=== PATIENT | male | born 1965 | race Hispanic/Latino ===

== ENCOUNTER 2021-05-01 20:22 | Emergency (ER) | payer BC, SELFPAY ==
--- NOTE | 2021-05-01 21:29 | RAD REPORT ---
EXAM DESCRIPTION: RAD - Chest Single View - 05/01/2021 9:18 pm CLINICAL HISTORY: COUGH Chest pain. COMPARISON: <Comparisons> FINDINGS: Portable technique limits examination quality. The lungs are grossly clear. The heart is normal in size. No displaced fractures. IMPRESSION: No acute intrathoracic process suspected.
--- NOTE | 2021-05-01 22:07 | ER ---
Nurse's Notes [facility] Name: Marko Mcneal Age: 56 yrs Sex: Male : 1965 Arrival Date: 05/01/2021 Time: 20:37 Bed 13 Private MD: Diagnosis: Coronavirus infection, unspecified Presentation: 05/01 20:35 Chief complaint: Patient states: I had chills last Monday then started to have rr5 cough, pain on the side of my right abdomen and shortness of breath and now it gets worse. 20:35 Coronavirus screen: Client denies travel out of the [place] in the last 14 days. chills, rr5 cough unrelated to allergies, Client presents with at least one sign or symptom that may indicate coronavirus-19. Standard/surgical mask placed on the client. Provider contacted for isolation considerations. Ebola Screen: Patient negative for fever greater than or equal to 101.5 degrees Fahrenheit, and additional compatible Ebola Virus Disease symptoms Patient denies exposure to infectious person. Patient denies travel to an Ebola-affected area in the 21 days before illness onset. Initial Sepsis Screen: Does the patient meet any 2 criteria? No. Patient's initial sepsis screen is negative. Does the patient have a suspected source of infection? No. Patient's initial sepsis screen is negative. Risk Assessment: Do you want to hurt yourself or someone else? Patient reports no desire to harm self or others. Onset of symptoms was April 28, 2021. 20:35 Method Of Arrival: Ambulatory rr5 20:35 Acuity: PERRI 3 rr5 Historical: - Allergies: 20:41 No Known Allergies; rr5 - Home Meds: 20:41 None [Active]; rr5 - PMHx: 20:41 None; rr5 - PSHx: 20:41 None; rr5 - Immunization history:: Adult Immunizations up to date. - Social history:: Smoking status: Patient/guardian denies using tobacco, the patient reports quitting approximately 25 years ago, Patient/guardian denies using alcohol, street drugs. Screenin:38 Abuse screen: Denies threats or abuse. Nutritional screening: No deficits noted. vg1 Tuberculosis screening: No symptoms or risk factors identified. Fall Risk No fall in past 12 months (0 pts). No secondary diagnosis (0 pts). No IV (0 pts). Ambulatory Aid- None/Bed Rest/Nurse Assist (0 pts). Gait- Normal/Bed Rest/Wheelchair (0 pts) Mental Status- Oriented to own ability (0 pts). Total Tanner Fall Scale indicates No Risk (0-24 pts). Assessment: 21:20 General: Appears in no apparent distress. comfortable, Behavior is calm, cooperative. vg1 Pain: Complains of pain in posterior aspect of left lateral abdomen, posterior aspect of right lateral abdomen, right upper quadrant and left upper quadrant Pain currently is 8 out of 10 on a pain scale. Pain began 2-3 days ago. Neuro: Level of Consciousness is awake, alert, obeys commands, Oriented to person, place, time, situation. Cardiovascular: Patient's skin is warm and dry. Respiratory: Reports shortness of breath cough that is dry, pain with respiration Airway is patent Respiratory effort is even, unlabored, Breath sounds are clear bilaterally. GI: Reports nausea, Patient currently denies diarrhea, vomiting. : No signs and/or symptoms were reported regarding the genitourinary system. EENT: Throat is reddened Reports sore throat. Derm: Skin is intact, is healthy with good turgor. Musculoskeletal: Circulation, motion, and sensation intact. 22:05 Reassessment: Patient appears in no apparent distress at this time. No changes from vg1 previously documented assessment. Patient and/or family updated on plan of care and expected duration. Pain level reassessed. Patient is alert, oriented x 3, equal unlabored respirations, skin warm/dry/pink. Vital Signs: 20:35 BP 145 / 85; Pulse 100; Resp 19; Temp 99; Pulse Ox 100% ; Weight 88.45 kg; Height 5 ft. rr5 4 in. (162.56 cm); Pain 8/10; 21:20 BP 125 / 82; Pulse 90; Resp 18; Pulse Ox 98% on R/A; vg1 22:04 BP 121 / 84; Pulse 97; Resp 16; Pulse Ox 100% on R/A; vg1 20:35 Body Mass Index 33.47 (88.45 kg, 162.56 cm) rr5 ED Course: 20:37 Patient arrived in ED. cf2 20:41 Triage completed. rr5 20:42 Arm band placed on left wrist. EKG completed in triage. Results shown to MD. rr5 20:44 COVID swab sent to lab. rr5 21:01 Wiley Isaac PA is PHCP. [facility] 21:01 Josiah Cespedes MD is Attending Physician. m 21:18 Chest Single View XRAY In Process Unspecified. EDMS 21:35 Whit Weinstein, RN is Primary Nurse. vg1 21:39 Patient has correct armband on for positive identification. Call light in reach. pt vg1 sitting in bedside chair. 22:21 No provider procedures requiring assistance completed. Patient did not have IV access lp1 during this emergency room visit. Administered Medications: 22:05 Drug: Decadron (dexamethasone) 10 mg Route: IM; Site: left deltoid; vg1 22:20 Follow up: Response: No adverse reaction lp1 Outcome: 22:06 Discharge ordered by MD. [facility] 22:21 Discharged to home ambulatory. lp1 22:21 Condition: good 22:21 Discharge instructions given to patient, Instructed on discharge instructions, follow up and referral plans. medication usage, Demonstrated understanding of instructions, follow-up care, medications, Prescriptions given X 2. 22:21 Patient left the ED. lp1 Signatures: Dispatcher [employer] EDMS Wiley Isaac PA PA Mimi Ahumada RN RN lp1 Korey Trinidad RN RN rr5 Jovany Peterson cf2 Whit Weinstein, RN RN vg1 Corrections: (The following items were deleted from the chart) 21:38 21:35 General: Appears in no apparent distress. comfortable, Behavior is calm, vg1 cooperative, vg1 21:38 21:35 Pain: Complains of pain in posterior aspect of left lateral abdomen, posterior vg1 aspect of right lateral abdomen, right upper quadrant and left upper quadrant Pain currently is 8 out of 10 on a pain scale. Pain began 2-3 days ago. vg1 21:38 21:35 Neuro: Level of Consciousness is awake, alert, obeys commands, Oriented to vg1 person, place, time, situation, vg1 21:38 21:35 Cardiovascular: Patient's skin is warm and dry. vg1 vg1 21:38 21:35 Respiratory: Reports shortness of breath cough that is dry, pain with respiration vg1 Airway is patent Respiratory effort is even, unlabored, Breath sounds are clear bilaterally. vg1 :38 21:35 GI: Reports nausea, Patient currently denies diarrhea, vomiting, vg1 vg1 :38 21:35 : No signs and/or symptoms were reported regarding the genitourinary system. vg1vg1 :38 21:35 EENT: Throat is reddened Reports sore throat. vg1 vg1 :38 21:35 Derm: Skin is intact, is healthy with good turgor, vg1 vg1 :38 21:35 Musculoskeletal: Circulation, motion, and sensation intact. vg1 vg1
--- NOTE | 2021-05-01 22:07 | EDPHYS ---
Physician Documentation [facility] Name: Marko Mcneal Age: 56 yrs Sex: Male : 1965 Arrival Date: 05/01/2021 Time: 20:37 Bed 13 Private MD: ED Physician Josiah Cespedes HPI: 05/01 22:03 This 56 yrs old Male presents to ER via Ambulatory with complaints of Cough. jmm 22:03 The patient or guardian reports cough. Onset: The symptoms/episode began/occurred jmm gradually, 3 day(s) ago. Modifying factors: The symptoms are alleviated by nothing, the symptoms are aggravated by nothing. Associated signs and symptoms: Pertinent positives: fever, rhinorrhea. The patient has not experienced similar symptoms in the past. Historical: - Allergies: 20:41 No Known Allergies; rr5 - Home Meds: 20:41 None [Active]; rr5 - PMHx: 20:41 None; rr5 - PSHx: 20:41 None; rr5 - Immunization history:: Adult Immunizations up to date. - Social history:: Smoking status: Patient/guardian denies using tobacco, the patient reports quitting approximately 25 years ago, Patient/guardian denies using alcohol, street drugs. ROS: 22:03 Constitutional: Positive for body aches, chills. jmm 22:03 Respiratory: Positive for cough. 22:03 All other systems are negative. Exam: 22:03 Constitutional: This is a well developed, well nourished patient who is awake, alert, jmm and in no acute distress. Head/Face: atraumatic. Eyes: EOMI, no conjunctival erythema appreciated ENT: Moist Mucus Membranes Neck: Trachea midline, Supple Chest/axilla: Normal chest wall appearance and motion. Cardiovascular: Regular rate and rhythm. No edema appreciated Respiratory: Normal respirations, no respiratory distress appreciated Abdomen/GI: Non distended, soft Back: Normal ROM Skin: General appearance color normal MS/ Extremity: Moves all extremities, no obvious deformities appreciated, no edema noted to the lower extremities Neuro: Awake and alert, normal gait Psych: Behavior is normal, Mood is normal, Patient is cooperative and pleasant Vital Signs: 20:35 BP 145 / 85; Pulse 100; Resp 19; Temp 99; Pulse Ox 100% ; Weight 88.45 kg; Height 5 ft. rr5 4 in. (162.56 cm); Pain 8/10; 21:20 BP 125 / 82; Pulse 90; Resp 18; Pulse Ox 98% on R/A; vg1 22:04 BP 121 / 84; Pulse 97; Resp 16; Pulse Ox 100% on R/A; vg1 20:35 Body Mass Index 33.47 (88.45 kg, 162.56 cm) rr5 MDM: 21:16 Patient medically screened. [facility] 22:04 Data reviewed: vital signs, nurses notes. Counseling: I had a detailed discussion with mehnaz the patient and/or guardian regarding: the historical points, exam findings, and any diagnostic results supporting the discharge/admit diagnosis, lab results, radiology results, the need for outpatient follow up, to return to the emergency department if symptoms worsen or persist or if there are any questions or concerns that arise at home. ED course: Patient is alert and non toxi jose appearance in the ED. No signs of resp distress. patient advised to follow up with pcp and otherwise given strict return precautions. patient understood and agrees with the plan of care. . 05/01 21:55 Order name: SARS-COV-2 RT PCR; Complete Time: 22:03 EDPA 05/01 21:00 Order name: Chest Single View XRAY; Complete Time: 21:32 rr5 Administered Medications: 22:05 Drug: Decadron (dexamethasone) 10 mg Route: IM; Site: left deltoid; vg1 22:20 Follow up: Response: No adverse reaction lp1 Disposition: 05/01/21 22:06 Discharged to Home. Impression: Coronavirus infection, unspecified. - Condition is Stable. - Discharge Instructions: COVID-19. - Prescriptions for Prednisone 20 mg Oral Tablet - take 3 tablet by ORAL route once daily for 5 days; 15 tablet. Albuterol Sulfate 90 mcg/actuation - inhale 1-2 puff by INHALATION route every 4-6 hours; 1 Inhaler. - Medication Reconciliation Form, Thank You Letter, Antibiotic Education, Prescription Opioid Use, Work release form form. - Follow up: Private Physician; When: 2 - 3 days; Reason: Recheck today's complaints, Continuance of care, Re-evaluation by your physician. Signatures: Dispatcher [employer] [facility] Wiley Isaac PA PA jmm Pena, Laura, RN RN lp1 Korey Trinidad, RN RN rr5 Whit Weinstein, RN RN vg1 Corrections: (The following items were deleted from the chart) 21:06 20:45 CORONAVIRUS+ ordered. EDMS EDMS 22:21 22:06 05/01/2021 22:06 Discharged to Home. Impression: Coronavirus infection, lp1 unspecified. Condition is Stable. Forms are Medication Reconciliation Form, Thank You Letter, Antibiotic Education, Prescription Opioid Use. Follow up: Private Physician; When: 2 - 3 days; Reason: Recheck today's complaints, Continuance of care, Re-evaluation by your physician. mehnaz
[2021-05-01] MEDS ORDERED: dexAMETHasone 10 MG/ML VIAL ONE (22:18)
[2021-05-01 22:26] VITALS: TEMP 99
[2021-05-01 22:29] VITALS: BP 121/84; O2SAT 100
== END 2021-05-01 22:21 | disposition home or self-care (01) ==
LOC: ER 20:22
DX: U07.1 COVID-19 (principal)
CPT/HCPCS: 71045; 96372; 99283; J1100; U0003

== ENCOUNTER 2024-09-23 09:21 | Emergency (ER) | payer OTHER ==
--- OUTSIDE RECORDS SUMMARY | 2024-09-23 09:24 | XMS REPORT | Continuity of Care Document ---
Author Name Unknown Address [address] [facility] [address] [place] [address] [facility] thconnect Address [address] [facility] [place] [address] Care Team Providers Care Forester [employer] Name Role Phone PCP, PATIENT DOES NOT HAVE A Primary Care Physic Uday Blanchard Attending Clinician Unavailable Sujey Zaman PA-C Attending Clinician [phone] Unknown, Attending Attending Clinician Unavailab SUJEY Zarate Attending Clinician Unavailable Doctor Unassigned, [place] Attending Clinician U navailable UNKNOWN, ATTENDING Attending Clinician Unavailab tyson Payers Payer Name Policy Type Policy Number Effective Date Expirati on Date Source Problems Condition Name Condition Details Condition Category Status Onset Date Resolution Date Last Treatment Date Treating Clinician Comments Source [id number] Obesity, Class I, BMI 30-34.9 Problem [facility] No known active problems No known active problems Disease [facility] [id number] Other chronic pain Problem [facility] [id number] Thrombocyt openia Problem [facility] [id number] Bony sclerosis Problem [facility] Anemia Anemia, unspecifie d type Problem [facility] [id number] Acute migraine Problem [facility] Allergies, Adverse Reactions, Alerts Allergy Name Allergy Type Status Severity Reaction(s) Onset Date Inactive Date Treating Clinician Comments Source NO KNOWN ALLERGIE S Drug Class Active [facility] Social History Social Habit Start Date Stop Date Quantity Comments Source History of Tobacco Use [facility] Sex Assigned At [facility] Exposure to SARS-CoV-2 (event) 2022-08-27 00:00:00 2022-09-06 18:07:00 Not sure [facility] Tobacco use and exposure 2020-02-03 00:00:00 2020-02-03 00:00:00 Smokeless tobacco non-user [facility] Smoking Status Start Date Stop Date Source Never Smoker [facility] Medications Ordered Medication Name Filled Medication Name Start Date Stop Date Current Medication? Ordering Clinician Indication Dosage Frequency Signature (SIG) Comments Components Source Cyclobenzap rine HCl 10 MG Cyclobenzap rine HCl 10 MG 2023-11 00:00: 00 No 1{table t_at_be dtime_a s_neede d} QD Cyclobenza daily HCl 10 MG Naproxen 500 MG Naproxen 500 MG 8-16 00:00: 00 No QD Naproxen 500 MG sulfamethox azole-trime thoprim 800-160 mg per tablet 2021-11 00:00: 00 09-17 04:59 :00 No [id number] 1{tbl} Take 1 tablet by mouth in the morning and 1 tablet in the evening. Do all this for 10 days. [facility] hydrOXYzine 25 mg tablet 2021-11 00:00: 00 09-17 04:59 :00 No [id number] 25mg Take 1 tablet by mouth at bedtime for 10 days. [facility] ondansetron (ZOFRAN ODT) 8 mg disintegrat ing tablet 02-02 00:00: 00 Yes [id number] 8mg Take 1 tablet by mouth every 8 (eight) hours as needed for Nausea and Vomiting (N/V). [facility] Vital Signs Vital Name Observation Time Observation Value Comments S ource height 2024-08-30 11:00:00 61.81 [in_i] Com [facility] weight 2024-08-30 11:00:00 183.4 [facility]lb_av[facility] 2024-08-30 11:00:00 98.2 [degF] Com [facility] bmi 2024-08-30 11:00:00 33.75 kg/m2 Comm on [facility] oximetry 2024-08-30 11:00:00 97 % Commo n [facility] respiratory rate 2024-08-30 11:00:00 16 /min Common [facility] blood pressure systolic 2024-08-30 11:00:00 120 mm[Hg] [facility] blood pressure diastolic 2024-08-30 11:00:00 62 mm[Hg] [facility] height 2024-08-16 10:40:00 61.81 [in_i] Com [facility] weight 2024-08-16 10:40:00 182.2 [lb_av] [facility] 2024-08-16 10:40:00 97.7 [degF] Com [facility] bmi 2024-08-16 10:40:00 33.53 kg/m2 Comm on [facility] oximetry 2024-08-16 10:40:00 97 % Commo n [facility] respiratory rate 2024-08-16 10:40:00 17 /min Common [facility] blood pressure systolic 2024-08-16 10:40:00 129 mm[Hg] Common [facility] blood pressure diastolic 2024-08-16 10:40:00 76 mm[Hg] [facility] height 2024-07-12 10:00:00 61.81 [in_i] Com [facility] weight 2024-07-12 10:00:00 183.6 [lb_av] Co mmon [facility] temperature 2024-07-12 10:00:00 97.3 [degF] Com mon [facility] bmi 2024-07-12 10:00:00 33.78 kg/m2 Comm on [facility] oximetry 2024-07-12 10:00:00 96 % Commo n [facility] respiratory rate 2024-07-12 10:00:00 17 /min Common [facility] blood pressure systolic 2024-07-12 10:00:00 112 mm[Hg] Common [facility] blood pressure diastolic 2024-07-12 10:00:00 64 mm[Hg] Common [facility] Respiratory rate 2022-09-06 23:09:00 16 /min [facility] Body height 2022-09-06 23:09:00 162.6 cm [facility] Body weight 2022-09-06 23:09:00 84.823 kg [facility] BMI 2022-09-06 23:09:00 32.10 kg/m2 [facility] Oxygen saturation in Arterial blood by Pulse oximetry 2022-09-06 23:09:00 99 /min [facility] Systolic blood pressure 2022-09-06 23:09:00 129 mm[Hg] [facility] Diastolic blood pressure 2022-09-06 23:09:00 83 mm[Hg] [facility] Heart rate 2022-09-06 23:09:00 72 /min [facility] Body temperature 2022-09-06 23:09:00 36.61 Hermelinda [facility] Procedures Procedure Date / Time Performed Performing Clinicia n Source ASSIGNMENT OF BENEFITS 2022-09-06 22:45:18 Docto r Unassigned, [place] [facility] Encounters Start Date/Time End Date/Time Encounter Type Admission Type Attending Clinicians Care Facility Care Department Encounter ID Source 2024-08-28 08:36:00 Outpatient Uday Perez [facility] [id number] [facility] 2024-08-14 08:57:00 Outpatient Uday Perez [facility] [id number] [facility] 2024-07-12 09:23:01 Outpatient Uday Perez [facility] [id number] [facility] 2024-09-04 00:00:00 2024-09-04 00:00:00 (TEL) [facility] [id number] [facility] 2024-08-30 00:00:00 2024-08-30 00:00:00 OFFICE VISIT ESTAB PT LEVEL 4 [facility] [id number] [facility] 2024-08-16 00:00:00 2024-08-16 00:00:00 OFFICE VISIT ESTAB PT LEVEL 4 [facility] [id number] [facility] 2024-07-12 00:00:00 2024-07-12 00:00:00 OFFICE VISIT NEW PT LEVEL 4 [facility] [id number] [facility] 2022-09-06 17:45:00 2022-09-06 18:00:00 Urgent Care Sujey Zaman Unknown, Attending [facility] [id number] [facility] 2022-09-06 17:45:00 2022-09-06 17:45:00 Outpatient R SUJEY ZAMAN [facility] [id number] [facility] 2022-09-06 00:00:00 2022-09-06 00:00:00 Orders Only Doctor Unassigned, [place] [facility] [id number] [facility] 2020-02-03 19:30:00 2020-02-03 19:30:00 Outpatient R [facility] [id number] [facility] 2020-02-03 19:30:00 2020-02-03 19:30:00 Outpatient R UNKNOWN, ATTENDING [facility] [id number] [facility]
[2024-09-23 10:02] LABS: Absolute Basophils 0.1 K/uL (0-0.5); Absolute Eosinophils 0.2 K/uL (0-0.5); Absolute Lymphocytes (CBC) 2.2 K/uL (0.7-4.9); Absolute Monocytes 0.3 K/uL (0.1-1.3); Absolute Neutrophil 2.7 K/uL (1.8-8.0); Basophils % 1.6 % (0-1.3); Eosinophils % 2.8 % (0-4.4); Hematocrit 26.6 % (39.6-49.0); Hemoglobin 9.1 g/dL (13.6-17.9); MCH 29.4 pg (27.0-35.0); MCHC 34.3 g/dL (32.0-36.0); MCV 85.6 fL (80-100); MPV 6.6 fL (7.6-11.3); Monocytes % 5.9 % (3.3-12.3); Neutrophils % 49.7 % (41.7-73.7); Nucleated Red Blood Cells % 0.6 % (0-0); Platelets 122 thou/uL (152-406); RBC Red Blood Cell Count 3.11 M/uL (4.33-5.43); Red Cell Distribution Width 18.4 % (12.1-15.2)
[2024-09-23 10:05] LABS: Protime INR 1.07
--- NOTE | 2024-09-23 10:08 | RAD REPORT ---
EXAM: CT brain without contrast HISTORY: paresthesia / seizure COMPARISON: None TECHNIQUE: Multiple contiguous axial images were obtained and a CT of the brain without contrast. Sag ittal and coronal reformats were performed. One or more of the following dose reduction techniques were used: Automated exposure control, adjust ment of the mA and/or kV according to patient size, and/or iterative reconstruction. FINDINGS: 12-13 mm left sided intermediate subdural collection is present along the left convexity. Mild areas of acute hemorrhage are seen within the intermediate density collection.. The brain is normal in morphology. Left to right midline shift of 7.5 mm is noted. Mild osseous sclerosis is seen. The visualized paranasal sinuses and mastoid air cells are essentiall y clear. IMPRESSION: Acute and subacute left-sided subdural hematoma noted measuring maximally 1211 13 mm and resulting in 7.5 mm [id number] midline shift. The findings were communicated with Meliza Lozano at 09/23/2024 10:05 AM by telephone.
--- NOTE | 2024-09-23 10:18 | RAD REPORT ---
EXAMINATION: CTA HEAD CLINICAL INDICATION: SEIZURE, PARESTHESIA TECHNIQUE: Axial CT images were obtained through the head after intravenous contrast utilizing angiog raphic protocol with 3D post-processing (maximum intensity projection images, volume rendered images and/or shaded surface rendered images). One or more of the following dose reduction technique s were used: Automated exposure control, adjustment of the mA and/or kV according to patient size, and/or iterative reconstruction. Unless otherwise specified, incidental findings do not require dedic ated imaging follow-up. COMPARISON: No prior exam. FINDINGS: ICA: The petrous, cavernous, and supraclinoid segments of the bilateral internal carotid arteries are normal. The ophthalmic artery origins are visualized and normal. The posterior communicating arteries are patent. FRITZ: Anterior cerebral arteries are normal bilaterally. The anterior communicating artery is patent. MCA: Middle cerebral arteries are normal bilaterally. RESPIRATORY CARE INSTRUCTOR: Posterior cerebral arteries are normal bilaterally. Vertebrobasilar: The vertebral arteries are patent. The basilar artery is normal in appearance. 3D images confirm these findings. IMPRESSION: No significant flow abnormality is identified.
[2024-09-23 10:22] LABS: Albumin 3.8 g/dL (3.4-5.0); Albumin/Globulin Ratio 1.1 (1.1-1.8); Anion Gap 9.5 mEq/L (5.0-15.0); Bilirubin Direct 0.2 mg/dL (0-0.2); Bilirubin Indirect, Calculated 0.4 mg/dL (0.2-0.8); Bilirubin Total 0.6 mg/dL (0.2-1.0); Globulin 3.6 g/dL (2.3-3.5); Magnesium 2.1 mg/dL (1.6-2.4); Potassium 4.5 mEq/L (3.5-5.1); Protein, Total 7.4 g/dL (6.4-8.2); Troponin High Sensitivity 4.9 pg/mL (<58.9)
--- NOTE | 2024-09-23 10:24 | RAD REPORT ---
EXAMINATION: CTA NECK CLINICAL INDICATION: paresthesia / seizure TECHNIQUE: Axial CT images were obtained from the aortic arch to the skull base after intravenous con trast utilizing angiographic protocol with 3D post-processing (maximum intensity projection images, volume rendered images and/or shaded surface rendered images). One or more of the following dose redu ction techniques were used: Automated exposure control, adjustment of the mA and/or kV according to patient size, and/or iterative reconstruction. Unless otherwise specified, incidental findings do not require dedicated imaging follow-up. COMPARISON: No prior exam. FINDINGS: AORTA: The imaged aortic arch is normal. CCA: The common carotid arteries are patent and normal in caliber. ICA/ECA: Mild hard plaque is seen in both carotid bulbs, slightly greater on the right. Stenosis is m ild bilaterally, less than 50%. VERTEBRAL: The cervical vertebral arteries are patent. The vertebral arteries are codominant. SOFT TISSUE: There are mildly enlarged lymph nodes noted throughout the neck bilaterally, nonspecific . The visualized lung apices are clear. Generalized osteosclerosis, indeterminate etiology. 3D images confirm these findings. IMPRESSION: No significant flow abnormality of the neck vessels is identified. Mild hard plaque involving both ca rotid bulbs. Diffuse osteosclerotic pattern is seen, indeterminate. Mildly enlarged lymph nodes are seen in the neck bilaterally. NASCET criteria used. Mild 0-49% stenosis Moderate 50-69% stenosis Severe 70-99% stenosis
[2024-09-23] MEDS ORDERED: HYDROMORPHONE HCL 0.5 MG/0.5 ML INJ ONE (10:39)
[2024-09-23] MEDS ORDERED: ONDANSETRON 4 MG/2 ML VIAL ONE (10:39)
--- NOTE | 2024-09-23 10:43 | ER ---
Nurse's Notes [facility] Name: Marko Pisano Age: 59 yrs Sex: Male : 1965 Arrival Date: 09/23/2024 Time: 09:21 Bed 17 Private MD: Diagnosis: Subdural hemorrhage, headache Presentation: 09/23 09:23 Chief complaint: Patient states: I was working and I felt dizzy and then I iw started shaking and lost feeling on right leg , it was mild . Since Monday and Monday it has been happening off and on, lasts about one minute , loses strength in right leg. Coronavirus screen: At this time, the client does not indicate any symptoms associated with coronavirus-19. Ebola Screen: Patient negative for fever greater than or equal to 101.5 degrees Fahrenheit, and additional compatible Ebola Virus Disease symptoms No symptoms or risks identified at this time. Initial Sepsis Screen: Does the patient meet any 2 criteria? Does the patient have a suspected source of infection? No. Patient's initial sepsis screen is negative. Risk Assessment: Do you want to hurt yourself or someone else? Patient reports no desire to harm self or others. Onset of symptoms was September 19, 2024. 09:23 Method Of Arrival: Ambulatory iw 09:23 Acuity: PERRI 3 iw 10:12 Acuity: PERRI 2 iw 12:05 No acute neurological deficit is noted. db 12:05 Pre-hospital glucose is not applicable to this patient. db Stroke Activation: Symptom onset > 6 hours Physician: ED Attending; Name: ; Notified At: ; Arrived At: Physician: Mid-Level Provider; Name: ; Notified At: ; Arrived At: Physician: [not used]; Name: ; Notified At: ; Arrived At: Physician: [not used]; Name: ; Notified At: ; Arrived At: Physician: [not used]; Name: ; Notified At: ; Arrived At: Historical: - Allergies: : No Known Allergies; iw - PMHx: : None; iw - PSHx: : None; iw - Immunization history:: Adult Immunizations not up to date. - Infectious Disease History:: Denies. - Social history:: Smoking status: Patient reports the use of cigarette tobacco products, Smoking status: Patient denies any tobacco usage or history of. Screenin:00 [facility] ED Fall Risk Assessment (Adult) History of falling in the last 3 months, db including since admission No falls in past 3 months (0 pts) Confusion or Disorientation No (0 pts) Intoxicated or Sedated No (0 pts) Impaired Gait No (0 pts) Mobility Assist Device Used No (0 pt) Altered Elimination No (0 pt) Score/Fall Risk Level 0 - 2 = Low Risk Oriented to surroundings, Maintained a safe environment. Abuse screen: Denies threats or abuse. Denies injuries from another. Nutritional screening: No deficits noted. Tuberculosis screening: No symptoms or risk factors identified. Renuka Swallow Protocol Brief Cognitive Screen What is your name? Normal, Where are you right now? Normal, What year is it? Normal. Oral Mechanism Examination Facial Symmetry: Normal, Motion: Normal, Lip Closure: Normal, Oral Mechanism Result: Normal. 3 oz Water Swallow Challenge: Pt able to drink all water without stopping, coughing, choking or throat clearing: Yes Result: PASS Notified: Meliza Ontiveros MD. Assessment: 09:30 VAN Scoring: Arm Drift: Patients demonstrates NO arm weakness. Patient is VAN Negative. db Visual Disturbance: No visual disturbance noted. Aphasia: No aphasia noted. Neglect: No neglect noted. Renuka Swallow Protocol. Irwin Swallow Protocol Brief Cognitive Screen What is your name? Normal, Where are you right now? Normal, What year is it? Normal. Oral Mechanism Examination Facial Symmetry: Normal, Motion: Normal, Lip Closure: Normal, Oral Mechanism Result: Normal. 3 oz Water Swallow Challenge: Pt able to drink all water without stopping, coughing, choking or throat clearing: Yes Result: PASS Notified: Meliza Ontiveros MD. TNKase (Tenecteplase) Screening: Contraindications: Other: OUT OF THE WINDOWS. BLEED. Reassessment: Patient appears in no apparent distress at this time. Patient and/or family updated on plan of care and expected duration. Pain level reassessed. Patient is alert, oriented x 3, equal unlabored respirations, skin warm/dry/pink. 10:00 Reassessment: Patient appears in no apparent distress at this time. Patient and/or db family updated on plan of care and expected duration. Pain level reassessed. Patient is alert, oriented x 3, equal unlabored respirations, skin warm/dry/pink. General: Appears in no apparent distress. comfortable, Behavior is calm, cooperative, appropriate for age. Pain: Complains of pain in head. Neuro: Level of Consciousness is awake, alert, obeys commands, Oriented to person, place, time, situation. Neuro: Reports dizziness, since WEDNESDAY 09/19 headache. Respiratory: Airway is patent Respiratory effort is even, unlabored, Respiratory pattern is regular, symmetrical. 10:00 Irwin Swallow Protocol Exclusion Criteria: Exclusion Criteria Result: Proceed. db 10:30 Reassessment: Patient appears in no apparent distress at this time. Patient and/or db family updated on plan of care and expected duration. Pain level reassessed. Patient is alert, oriented x 3, equal unlabored respirations, skin warm/dry/pink. 11:30 Reassessment: Patient appears in no apparent distress at this time. Patient and/or db family updated on plan of care and expected duration. Pain level reassessed. Patient is alert, oriented x 3, equal unlabored respirations, skin warm/dry/pink. AMBULATORY TO RESTROOM. 11:40 Reassessment: CALLED [place] [id number] AT [phone] X 2 TO GIVE PATIENT db REPORT BUT NO ANSWER. 11:44 Reassessment: CALLED TRANSFER CENTER AT [phone]. TRANSFER CENTER ATTEMPTED TO GET db A HOLD OF THE UNIT BUT NO ANSWER. STATED TO DOCUMENT REPORT ATTEMPTED AND TO GO AHEAD AND SEND PATIENT. 11:45 Reassessment: TRANSFER FORM SIGNED BY PATIENT. db 12:00 Reassessment: EMS ARRIVAL FOR PATIENT TRAN[facility] TO [facility]. db Vital Signs: 09:23 BP 149 / 96; Pulse 87; Resp 16; Temp 98.4; Pulse Ox 100% on R/A; Weight 79.38 kg; iw Height 5 ft. 4 in. ; 10:00 BP 142 / 84; Pulse 85; Resp 16; Pulse Ox 99% ; db 10:30 BP 137 / 81; Pulse 83; Resp 18; Pulse Ox 100% on R/A; db 11:00 BP 142 / 79; Pulse 81; Resp 18; Pulse Ox 100% ; db 11:30 BP 136 / 76; Pulse 75; Resp 18; Pulse Ox 100% on R/A; db 09:23 Body Mass Index 30.04 (79.38 kg, 162.56 cm) iw Vitals: 10:00 Cardiac Rhythm Assessment Regular Sinus rhythm. db Candido Coma Score: 10:00 Eye Response: spontaneous(4). Motor Response: obeys commands(6). Verbal Response: db oriented(5). Total: 15. NIH Stroke Scale Scores: 09:30 NIHSS Score: 0 db 10:00 NIHSS Score: 0 db 10:30 NIHSS Score: 0 db 11:00 NIHSS Score: 0 db 12:00 NIHSS Score: 0 db ED Course: 09:23 Patient arrived in ED. iw 09:24 Meliza Ontiveros MD is Attending Physician. sp3 09:25 Triage completed. iw 09:26 Arm band placed on. iw 09:35 Rehana White, RN is Primary Nurse. db 09:[address] via wheelchair. db 09:52 CT Neck Angio In Process Unspecified. EDMS 09:52 CT Head Brain wo Cont In Process Unspecified. EDMS 09:52 Head angio In Process Unspecified. EDMS 09:54 Initial lab(s) drawn, by ED staff, sent to lab. Inserted saline lock: 20 gauge in right db antecubital area, using aseptic technique. Blood collected. Flushed with 10 mL NS. 09:[address]. db 10:00 Patient has correct armband on for positive identification. Placed in gown. Bed in low db position. Call light in reach. Side rails up X 1. Client placed on continuous cardiac and pulse oximetry monitoring. NIBP monitoring applied. channel rougher on. Pulse ox on. NIBP on. Warm blanket given. Pillow given. 10:00 Seizure precautions initiated. db 10:00 EKG done, by ED staff, reviewed by Meliza Ontiveros MD. db 10:46 initiated transfer to [facility]. bd 11:12 pt accepted in transfer to [facility] by dr marta ontiveros,admin approval given by quynh Woodward pt going to [address] [place] [id number] rm [id number]. 11:48 pt to be transported by [facility]. bd 12:02 Provided Education on: TRANSFER. db 12:02 No provider procedures requiring assistance completed. Patient transferred, IV remains db in place. Administered Medications: 10:40 Drug: HYDROmorphone IVP 0.5 mg IVP once Route: IVP; Site: right antecubital; db 11:10 Follow up: Response: No adverse reaction; Pain is decreased db 10:40 Drug: Ondansetron IVP 4 mg IVP once; over 2 minutes Route: IVP; Site: right antecubital;db 11:10 Follow up: Response: No adverse reaction db Medication: 10:00 VIS not applicable for this client. db Outcome: 10:42 ER care complete, transfer ordered by MD. miranda 12:02 Transferred by ground EMS to [facility], Transfer form completed. db X-rays sent w/ patient. 12:02 Condition: stable 12:02 Instructed on the need for transfer, 12:08 Patient left the ED. db NIH Stroke Scale - NIH Stroke Score Date: 09/23/2024 Time: 09:30 Total Score = 0 10. Dysarthria (speech clarity - read or repeat words) - 0(Normal) 11. Extinction and Inattention (visual/tactile/auditory/spatial/personal) - 0(No abnormality) 1a. Level of Consciousness (LOC) - 0(Alert) 1b. Level of Consciousness (LOC) (Month \T\ Age) - 0(Both) 1c. LOC Commands (Open \T\ Closes Eyes/Fluid Pump Operator) - 0(Both) 2. Best Gaze (Lateral Gaze Paresis) - 0(Normal) 3. Visual Field Loss - 0(No visual loss) 4. Facial Palsy - 0(Normal) 5a. Left Arm: Motor (10-second hold) - 0(No drift) 5b. Right Arm: Motor (10-second hold) - 0(No drift) 6a. Left Leg: Motor (5-second hold - always test supine) - 0(No drift) 6b. Right Leg: Motor (5-second hold - always test supine) - 0(No drift) 7. Limb Ataxia (finger/nose \T\ heel/kim - test with eyes open) - 0(Absent) 8. Sensory Loss (pinprick arms/legs/face) - 0(Normal) 9. Best Language: Aphasia (description/naming/reading) - 0(No aphasia) Initials: db NIH Stroke Scale - NIH Stroke Score Date: 09/23/2024 Time: 10:00 Total Score = 0 10. Dysarthria (speech clarity - read or repeat words) - 0(Normal) 11. Extinction and Inattention (visual/tactile/auditory/spatial/personal) - 0(No abnormality) 1a. Level of Consciousness (LOC) - 0(Alert) 1b. Level of Consciousness (LOC) (Month \T\ Age) - 0(Both) 1c. LOC Commands (Open \T\ Closes Eyes/Fluid Pump Operator) - 0(Both) 2. Best Gaze (Lateral Gaze Paresis) - 0(Normal) 3. Visual Field Loss - 0(No visual loss) 4. Facial Palsy - 0(Normal) 5a. Left Arm: Motor (10-second hold) - 0(No drift) 5b. Right Arm: Motor (10-second hold) - 0(No drift) 6a. Left Leg: Motor (5-second hold - always test supine) - 0(No drift) 6b. Right Leg: Motor (5-second hold - always test supine) - 0(No drift) 7. Limb Ataxia (finger/nose \T\ heel/kim - test with eyes open) - 0(Absent) 8. Sensory Loss (pinprick arms/legs/face) - 0(Normal) 9. Best Language: Aphasia (description/naming/reading) - 0(No aphasia) Initials: db NIH Stroke Scale - NIH Stroke Score Date: 09/23/2024 Time: 10:30 Total Score = 0 10. Dysarthria (speech clarity - read or repeat words) - 0(Normal) 11. Extinction and Inattention (visual/tactile/auditory/spatial/personal) - 0(No abnormality) 1a. Level of Consciousness (LOC) - 0(Alert) 1b. Level of Consciousness (LOC) (Month \T\ Age) - 0(Both) 1c. LOC Commands (Open \T\ Closes Eyes/Fluid Pump Operator) - 0(Both) 2. Best Gaze (Lateral Gaze Paresis) - 0(Normal) 3. Visual Field Loss - 0(No visual loss) 4. Facial Palsy - 0(Normal) 5a. Left Arm: Motor (10-second hold) - 0(No drift) 5b. Right Arm: Motor (10-second hold) - 0(No drift) 6a. Left Leg: Motor (5-second hold - always test supine) - 0(No drift) 6b. Right Leg: Motor (5-second hold - always test supine) - 0(No drift) 7. Limb Ataxia (finger/nose \T\ heel/kim - test with eyes open) - 0(Absent) 8. Sensory Loss (pinprick arms/legs/face) - 0(Normal) 9. Best Language: Aphasia (description/naming/reading) - 0(No aphasia) Initials: NIH Stroke Scale - NIH Stroke Score Date: 09/23/2024 Time: 11:00 Total Score = 0 10. Dysarthria (speech clarity - read or repeat words) - 0(Normal) 11. Extinction and Inattention (visual/tactile/auditory/spatial/personal) - 0(No abnormality) 1a. Level of Consciousness (LOC) - 0(Alert) 1b. Level of Consciousness (LOC) (Month \T\ Age) - 0(Both) 1c. LOC Commands (Open \T\ Closes Eyes/Fluid Pump Operator) - 0(Both) 2. Best Gaze (Lateral Gaze Paresis) - 0(Normal) 3. Visual Field Loss - 0(No visual loss) 4. Facial Palsy - 0(Normal) 5a. Left Arm: Motor (10-second hold) - 0(No drift) 5b. Right Arm: Motor (10-second hold) - 0(No drift) 6a. Left Leg: Motor (5-second hold - always test supine) - 0(No drift) 6b. Right Leg: Motor (5-second hold - always test supine) - 0(No drift) 7. Limb Ataxia (finger/nose \T\ heel/kim - test with eyes open) - 0(Absent) 8. Sensory Loss (pinprick arms/legs/face) - 0(Normal) 9. Best Language: Aphasia (description/naming/reading) - 0(No aphasia) Initials: NIH Stroke Scale - NIH Stroke Score Date: 09/23/2024 Time: 12:00 Total Score = 0 10. Dysarthria (speech clarity - read or repeat words) - 0(Normal) 11. Extinction and Inattention (visual/tactile/auditory/spatial/personal) - 0(No abnormality) 1a. Level of Consciousness (LOC) - 0(Alert) 1b. Level of Consciousness (LOC) (Month \T\ Age) - 0(Both) 1c. LOC Commands (Open \T\ Closes Eyes/Fluid Pump Operator) - 0(Both) 2. Best Gaze (Lateral Gaze Paresis) - 0(Normal) 3. Visual Field Loss - 0(No visual loss) 4. Facial Palsy - 0(Normal) 5a. Left Arm: Motor (10-second hold) - 0(No drift) 5b. Right Arm: Motor (10-second hold) - 0(No drift) 6a. Left Leg: Motor (5-second hold - always test supine) - 0(No drift) 6b. Right Leg: Motor (5-second hold - always test supine) - 0(No drift) 7. Limb Ataxia (finger/nose \T\ heel/kim - test with eyes open) - 0(Absent) 8. Sensory Loss (pinprick arms/legs/face) - 0(Normal) 9. Best Language: Aphasia (description/naming/reading) - 0(No aphasia) Initials: db Signatures: Dispatcher [employer] EDMS Vanesa Lanier Irene, RN RN iw Meliza Ontiveros MD MD sp3 Rehana White RN RN db Corrections: (The following items were deleted from the chart) 09:26 09:23 BP 149 / 6; Pulse 87bpm; Resp 16bpm; Pulse Ox 100% RA; Temp 98.4F; 79.38 iw kg; Height 5 ft. 4 in.; BMI: 30.0; iw 10:52 10:52 Irwin Swallow Protocol Exclusion Criteria: Exclusion Criteria Result: db Proceed db
--- NOTE | 2024-09-23 10:43 | EDPHYS ---
Physician Documentation [facility] Name: Marko Pisano Age: 59 yrs Sex: Male : 1965 Arrival Date: 09/23/2024 Time: 09:21 Bed 17 Private MD: ED Physician Meliza Lozano HPI: 09/23 09:44 This 59 yrs old Male presents to ER via Ambulatory with complaints of Probable sp3 Seizure, General Weakness. 09:44 59-year-old male with no known past medical history presents to the ED with chief sp3 complaint headache and right lower extremity weakness and paresthesia off and on for the last 4 days. This initially started this past with episodes lasting 30 seconds to 1 minute and over the weekend had 4-5 more with 1 this morning after which he told his family who brought him into the ED. Patient has been seeing his primary care physician for low back pain and during which he states that they "found some concerning things" and is currently being worked up for "concerns of cancer" and is scheduling an outpatient EGD. Patient cannot recall any other history from his current outpatient workup. I have instructed them to call the office and have them fax results to our fax number here. Patient denies any loss of consciousness during the above episodes but does state that his left-sided headache was concurrent with that. He currently has no symptoms. No episodes of observed seizure or postictal period noted. He denies fever, facial pain, neck pain, neck stiffness, chest pain, shortness of breath, abdominal pain, vomiting, diarrhea, ongoing back pain, changes in weight, night sweats or any other signs or symptoms on ROS at this time. He does endorse ongoing fatigue.. Historical: - Allergies: 09:26 No Known Allergies; iw - PMHx: 09: None; iw - PSHx: : None; iw - Immunization history:: Adult Immunizations not up to date. - Infectious Disease History:: Denies. - Social history:: Smoking status: Patient reports the use of cigarette tobacco products, Smoking status: Patient denies any tobacco usage or history of. ROS: 09:46 Constitutional: Negative for fever, chills, and weight loss, Eyes: Negative for injury, sp3 pain, redness, and discharge, ENT: Negative for injury, pain, and discharge, Neck: Negative for injury, pain, and swelling, Cardiovascular: Negative for chest pain, palpitations, and edema, Respiratory: Negative for shortness of breath, cough, wheezing, and pleuritic chest pain, Abdomen/GI: Negative for abdominal pain, nausea, vomiting, diarrhea, and constipation, Back: Negative for injury and pain, Skin: Negative for injury, rash, and discoloration, Psych: Negative for depression, anxiety, suicide ideation, homicidal ideation, and hallucinations, Allergy/Immunology: Negative for hives, rash, and allergies, Endocrine: Negative for neck swelling, polydipsia, polyuria, polyphagia, and marked weight changes, Hematologic/Lymphatic: Negative for swollen nodes, abnormal bleeding, and unusual bruising, 09:46 All other systems are negative, Exam: 09:47 Constitutional: This is a well developed, well nourished patient who is awake, alert, sp3 and in no acute distress. Head/Face: Normocephalic, atraumatic. Eyes: Pupils equal round and reactive to light, extra-ocular motions intact. Lids and lashes normal. Conjunctiva and sclera are non-icteric and not injected. Cornea within normal limits. Periorbital areas with no swelling, redness, or edema. Neck: Trachea midline, no thyromegaly or masses palpated, and no cervical lymphadenopathy. Supple, full range of motion without nuchal rigidity, or vertebral point tenderness. No Meningismus. Chest/axilla: Normal chest wall appearance and motion. Nontender with no deformity. No lesions are appreciated. Cardiovascular: Regular rate and rhythm with a normal S1 and S2. No gallops, murmurs, or rubs. Normal PMI, no JVD. No pulse deficits. Respiratory: Lungs have equal breath sounds bilaterally, clear to auscultation and percussion. No rales, rhonchi or wheezes noted. No increased work of breathing, no retractions or nasal flaring. Abdomen/GI: Soft, non-tender, with normal bowel sounds. No distension or tympany. No guarding or rebound. No evidence of tenderness throughout. Back: No spinal tenderness. No costovertebral tenderness. Full range of motion. Skin: Warm, dry with normal turgor. Normal color with no rashes, no lesions, and no evidence of cellulitis. MS/ Extremity: Pulses equal, no cyanosis. Neurovascular intact. Full, normal range of motion. Neuro: Awake and alert, GCS 15, oriented to person, place, time, and situation. Cranial nerves II-XII grossly intact. Motor strength 5/5 in all extremities. Sensory grossly intact. Cerebellar exam normal. Normal gait. Psych: Awake, alert, with orientation to person, place and time. Behavior, mood, and affect are within normal limits. 10:12 ECG was reviewed by the Attending Physician. EKG demonstrates normal sinus rhythm at 80 sp3 bpm with normal intervals, normal QRS, normal axis, normal ST's ST segments without evidence of acute ischemia. Vital Signs: 09:23 BP 149 / 96; Pulse 87; Resp 16; Temp 98.4; Pulse Ox 100% on R/A; Weight 79.38 kg; iw Height 5 ft. 4 in. ; 10:00 BP 142 / 84; Pulse 85; Resp 16; Pulse Ox 99% ; db 10:30 BP 137 / 81; Pulse 83; Resp 18; Pulse Ox 100% on R/A; db 11:00 BP 142 / 79; Pulse 81; Resp 18; Pulse Ox 100% ; db 11:30 BP 136 / 76; Pulse 75; Resp 18; Pulse Ox 100% on R/A; db 09:23 Body Mass Index 30.04 (79.38 kg, 162.56 cm) iw NIH Stroke Scale Scores: 09:30 NIHSS Score: 0 db 10:00 NIHSS Score: 0 db 10:30 NIHSS Score: 0 db 11:00 NIHSS Score: 0 db 12:00 NIHSS Score: 0 db Helena Coma Score: 10:00 Eye Response: spontaneous(4). Motor Response: obeys commands(6). Verbal Response: db oriented(5). Total: 15. MDM: 09:24 Medical Screening Exam initiated sp3 09:47 Data reviewed: vital signs, nurses notes, lab test result(s), EKG, radiologic studies. sp3 ED course: 59-year-old male with PMH above now with headache and paresthesias episodic in nature. Differential diagnosis includes [employer] PROJECT [employer]GER process including tumor mass, seizure, electrolyte abnormality, TIA/stroke spectrum, among others. Workup will include CT scan of the head, angiograms of brain and neck, general labs and EKG. We will try and get records from PCP. Disposition pending workup and patient course.. 10:40 ED course: Patient with 14 mm subdural hemorrhage was greater than 7 mm midline shift sp3 to the right. Patient vehemently denies any trauma, syncope or any other related history. He is not on any antiplatelet or anticoagulant agents. Old x-rays demonstrate sclerotic pattern which is likely more metabolic as further communicated with radiology. Alkaline phosphate is elevated. Calcium is 8.1. Thyroid studies are pending. Coagulations are normal. We will transfer patient to [facility] for neurosurgical evaluation and further management. Neurological exam here remains normal. Blood pressure at 142/84 with no intervention indicated.. 09/23 09:32 Order name: Basic Metabolic Panel; Complete Time: 10:39 sp3 09/23 09:32 Order name: CBC with Diff; Complete Time: 10:10 sp3 09/23 09:32 Order name: Hepatic Function; Complete Time: 10:39 sp3 09/23 09:32 Order name: High Sensitivity Troponin; Complete Time: 10:39 sp3 09/23 09:32 Order name: Magnesium; Complete Time: 10:39 sp3 09/23 09:32 Order name: Protime (+inr); Complete Time: 10:10 sp3 09/23 09:58 Order name: TSH; Complete Time: 10:51 sp3 09/23 09:58 Order name: T4 Free; Complete Time: 10:51 sp3 09/23 09:58 Order name: T4,Total; Complete Time: 10:51 sp3 09/23 09:32 Order name: CT Neck Angio; Complete Time: 10:39 sp3 09/23 09:32 Order name: CT Head Brain wo Cont; Complete Time: 10:10 sp3 09/23 09:36 Order name: Head angio; Complete Time: 10:39 EDMS 09/23 09:32 Order name: Cardiac monitoring; Complete Time: 10:33 sp3 09/23 09:32 Order name: EKG - Nurse/Tech; Complete Time: 10:33 sp3 09/23 09:32 Order name: IV Saline Lock; Complete Time: 10:33 sp3 09/23 09:32 Order name: Labs collected and sent; Complete Time: 10:33 sp3 09/23 09:32 Order name: NPO; Complete Time: 10:33 sp3 09/23 09:32 Order name: O2 Per Protocol; Complete Time: 10:33 sp3 09/23 09:32 Order name: O2 Sat Monitoring; Complete Time: 10:33 sp3 09/23 09:32 Order name: Stroke Swallow Screen; Complete Time: 10:33 sp3 09/23 09:32 Order name: Seizure Precautions; Complete Time: 10:33 sp3 Administered Medications: 10:40 Drug: HYDROmorphone IVP 0.5 mg IVP once Route: IVP; Site: right antecubital; db 11:10 Follow up: Response: No adverse reaction; Pain is decreased db 10:40 Drug: Ondansetron IVP 4 mg IVP once; over 2 minutes Route: IVP; Site: right antecubital;db 11:10 Follow up: Response: No adverse reaction db Disposition Summary: 09/23/24 10:42 Transfer Ordered Notes: Transfer Location: [facility] sp3 Reason: Higher level of care sp3 Condition: Stable sp3 Problem: new sp3 Symptoms: have worsened sp3 Accepting Physician: Neurosurgical team [facility](09/23/24 12:08) db Diagnosis - Subdural hemorrhage, headache sp3 Forms: - Medication Reconciliation Form sp3 - SBAR form sp3 Critical care time excluding procedures: 10:41 Critical care time: Bedside Care: 10 minutes, Consultation: 10 minutes, Family sp3 Intervention: 10 minutes. Total time: 30 minutes NIH Stroke Scale - NIH Stroke Score Date: 09/23/2024 Time: 09:30 Total Score = 0 10. Dysarthria (speech clarity - read or repeat words) - 0(Normal) 11. Extinction and Inattention (visual/tactile/auditory/spatial/personal) - 0(No abnormality) 1a. Level of Consciousness (LOC) - 0(Alert) 1b. Level of Consciousness (LOC) (Month \\T\\ Age) - 0(Both) 1c. LOC Commands (Open \\T\\ Closes Eyes/Ethylene Compressor Operator) - 0(Both) 2. Best Gaze (Lateral Gaze Paresis) - 0(Normal) 3. Visual Field Loss - 0(No visual loss) 4. Facial Palsy - 0(Normal) 5a. Left Arm: Motor (10-second hold) - 0(No drift) 5b. Right Arm: Motor (10-second hold) - 0(No drift) 6a. Left Leg: Motor (5-second hold - always test supine) - 0(No drift) 6b. Right Leg: Motor (5-second hold - always test supine) - 0(No drift) 7. Limb Ataxia (finger/nose \\T\\ heel/kim - test with eyes open) - 0(Absent) 8. Sensory Loss (pinprick arms/legs/face) - 0(Normal) 9. Best Language: Aphasia (description/naming/reading) - 0(No aphasia) Initials: NIH Stroke Scale - NIH Stroke Score Date: 09/23/2024 Time: 10:00 Total Score = 0 10. Dysarthria (speech clarity - read or repeat words) - 0(Normal) 11. Extinction and Inattention (visual/tactile/auditory/spatial/personal) - 0(No abnormality) 1a. Level of Consciousness (LOC) - 0(Alert) 1b. Level of Consciousness (LOC) (Month \\T\\ Age) - 0(Both) 1c. LOC Commands (Open \\T\\ Closes Eyes/Ethylene Compressor Operator) - 0(Both) 2. Best Gaze (Lateral Gaze Paresis) - 0(Normal) 3. Visual Field Loss - 0(No visual loss) 4. Facial Palsy - 0(Normal) 5a. Left Arm: Motor (10-second hold) - 0(No drift) 5b. Right Arm: Motor (10-second hold) - 0(No drift) 6a. Left Leg: Motor (5-second hold - always test supine) - 0(No drift) 6b. Right Leg: Motor (5-second hold - always test supine) - 0(No drift) 7. Limb Ataxia (finger/nose \\T\\ heel/kim - test with eyes open) - 0(Absent) 8. Sensory Loss (pinprick arms/legs/face) - 0(Normal) 9. Best Language: Aphasia (description/naming/reading) - 0(No aphasia) Initials: NIH Stroke Scale - NIH Stroke Score Date: 09/23/2024 Time: 10:30 Total Score = 0 10. Dysarthria (speech clarity - read or repeat words) - 0(Normal) 11. Extinction and Inattention (visual/tactile/auditory/spatial/personal) - 0(No abnormality) 1a. Level of Consciousness (LOC) - 0(Alert) 1b. Level of Consciousness (LOC) (Month \\T\\ Age) - 0(Both) 1c. LOC Commands (Open \\T\\ Closes Eyes/Ethylene Compressor Operator) - 0(Both) 2. Best Gaze (Lateral Gaze Paresis) - 0(Normal) 3. Visual Field Loss - 0(No visual loss) 4. Facial Palsy - 0(Normal) 5a. Left Arm: Motor (10-second hold) - 0(No drift) 5b. Right Arm: Motor (10-second hold) - 0(No drift) 6a. Left Leg: Motor (5-second hold - always test supine) - 0(No drift) 6b. Right Leg: Motor (5-second hold - always test supine) - 0(No drift) 7. Limb Ataxia (finger/nose \\T\\ heel/kim - test with eyes open) - 0(Absent) 8. Sensory Loss (pinprick arms/legs/face) - 0(Normal) 9. Best Language: Aphasia (description/naming/reading) - 0(No aphasia) Initials: db NIH Stroke Scale - NIH Stroke Score Date: 09/23/2024 Time: 11:00 Total Score = 0 10. Dysarthria (speech clarity - read or repeat words) - 0(Normal) 11. Extinction and Inattention (visual/tactile/auditory/spatial/personal) - 0(No abnormality) 1a. Level of Consciousness (LOC) - 0(Alert) 1b. Level of Consciousness (LOC) (Month \\T\\ Age) - 0(Both) 1c. LOC Commands (Open \\T\\ Closes Eyes/Ethylene Compressor Operator) - 0(Both) 2. Best Gaze (Lateral Gaze Paresis) - 0(Normal) 3. Visual Field Loss - 0(No visual loss) 4. Facial Palsy - 0(Normal) 5a. Left Arm: Motor (10-second hold) - 0(No drift) 5b. Right Arm: Motor (10-second hold) - 0(No drift) 6a. Left Leg: Motor (5-second hold - always test supine) - 0(No drift) 6b. Right Leg: Motor (5-second hold - always test supine) - 0(No drift) 7. Limb Ataxia (finger/nose \\T\\ heel/kim - test with eyes open) - 0(Absent) 8. Sensory Loss (pinprick arms/legs/face) - 0(Normal) 9. Best Language: Aphasia (description/naming/reading) - 0(No aphasia) Initials: db NIH Stroke Scale - NIH Stroke Score Date: 09/23/2024 Time: 12:00 Total Score = 0 10. Dysarthria (speech clarity - read or repeat words) - 0(Normal) 11. Extinction and Inattention (visual/tactile/auditory/spatial/personal) - 0(No abnormality) 1a. Level of Consciousness (LOC) - 0(Alert) 1b. Level of Consciousness (LOC) (Month \\T\\ Age) - 0(Both) 1c. LOC Commands (Open \\T\\ Closes Eyes/Ethylene Compressor Operator) - 0(Both) 2. Best Gaze (Lateral Gaze Paresis) - 0(Normal) 3. Visual Field Loss - 0(No visual loss) 4. Facial Palsy - 0(Normal) 5a. Left Arm: Motor (10-second hold) - 0(No drift) 5b. Right Arm: Motor (10-second hold) - 0(No drift) 6a. Left Leg: Motor (5-second hold - always test supine) - 0(No drift) 6b. Right Leg: Motor (5-second hold - always test supine) - 0(No drift) 7. Limb Ataxia (finger/nose \\T\\ heel/kim - test with eyes open) - 0(Absent) 8. Sensory Loss (pinprick arms/legs/face) - 0(Normal) 9. Best Language: Aphasia (description/naming/reading) - 0(No aphasia) Initials: db Signatures: Dispatcher [employer] EDMS Natalie Perry RN RN iw Meliza Lozano MD MD sp3 Rehana White RN RN db Corrections: (The following items were deleted from the chart) 09:32 09:32 BASIC METABOLIC PANEL+C.LAB.BRZ ordered. EDMS EDMS 09:32 09:32 CBC+H.LAB.BRZ ordered. EDMS EDMS 09:32 09:32 HEPATIC FUNCTION+C.LAB.BRZ ordered. EDMS EDMS 09:32 09:32 Troponin High Sensitivity+C.LAB.BRZ ordered. EDMS EDMS 09:32 09:32 MAGNESIUM+C.LAB.BRZ ordered. EDMS EDMS 09:32 09:32 PROTIME (+INR)+COAG.LAB.BRZ ordered. EDMS EDMS 09:32 09:32 Neck Angio+CT.RAD.BRZ ordered. EDMS EDMS 09:32 09:32 Head Brain Wo Cont+CT.RAD.BRZ ordered. EDMS EDMS 09:58 09:58 THYROID STIMULAT HORMONE+C.LAB.BRZ ordered. EDMS EDMS 09:59 09:58 T4 FREE+C.LAB.BRZ ordered. EDMS EDMS 09:59 09:58 T4,TOTAL+C.LAB.BRZ ordered. EDMS EDMS 10:23 09:58 CALCIUM+C.LAB.BRZ ordered. EDMS EDMS 12:08 10:42 Neurosurgical team [facility]'s sp3 db
[2024-09-23 10:45] LABS: T4,Total 6.7 ug/dL (4.5-12.1); Thyroid Stimulating Hormone 1.84 uIU/mL (0.358-3.740)
[2024-09-23 12:52] VITALS: TEMP 98.4
[2024-09-23 12:59] VITALS: O2SAT 100
[2024-09-23 13:01] VITALS: BP 136/76
--- NOTE | 2024-09-25 14:58 | EKG ---
Test Date: 2024-09-23 Test Time: 10:01:46 [employer] Pack[employer] Tester: GEE MEASUREMENT RESULTS: Intervals: Rate: 80 OR: 150 QRSD: 76 QT: 398 QTc: 459 [place]: P: 49 OR: 150 QRS: 79 T: 50 INTERPRETIVE STATEMENTS: Normal sinus rhythm Normal ECG No previous ECG available for comparison Electronically Signed On 09-25-24 14:48:43 CDT by Constantine Norman
== END 2024-09-23 12:08 | disposition short-term general hospital (02) ==
LOC: ER 09:21
DX: I62.00 Nontraumatic subdural hemorrhage, unspecified (principal); R29.700 NIHSS score 0; F17.210 Nicotine dependence, cigarettes, uncomplicated
CPT/HCPCS: 93005; 85025; 80048; 36415; 83735; 85610; 80076; 84436; 84443; 84484; 84439; 70450; 70496; 70498; 96375; 96374; 99285; Q9967; J1170; J2405

== ENCOUNTER 2025-01-21 12:35 | Emergency (ER) | payer OTHER ==
--- OUTSIDE RECORDS SUMMARY | 2025-01-21 12:40 | XMS REPORT | Clinical Summary ---
Author Name Unknown Organization [facility] Address [address] [place] [address] Care Team Providers Care Shelving Supervisor Name Role Phone Uday Perez Unavailable Lorena Lutz MD Primary Care Provider + Ajit Pollard MD Primary Care Provider [phone] Allergies No known active allergies Medications * This document contains information received from the source organization and may not represent a complete record from that organization. thiamine (VITAMIN B-1) 100 mg tablet Take 1 tablet (100 mg) by mouth daily. 10/07/20 Active levETIRAcetam (KEPPRA) 500 mg tablet Take 1 tablet (500 mg) by mouth twice daily. 10/07/20 025 Active darolutamide (Nubeqa) 300 mg tabletIndicati ons:Adenocarci noma of prostate Take 2 tablets (600 mg) by mouth twice daily for Prostate Cancer. 120 tablet 6 01/17/2025 9:16 AM UNIT CONTROL WORKER 12/27/19 25 Active cholecalcifero l, vitamin D3, (VITAMIN D3 ORAL) Take 1,000 Units by mouth twice daily. Active leuprolide acetate (LUPRON DEPOT IM) Inject into the shoulder, thigh, or buttocks. Active gabapentin (NEURONTIN) 300 mg capsule Take 1 capsule (300 mg) by mouth as directed. PRN 10/07/20 025 Discontinued bicalutamide (CASODEX) 50 mg tablet Take 1 tablet (50 mg) by mouth daily. Started taking on 10/11/24 10/07/20 025 Discontinued acetaminophen (TYLENOL) 500 mg tablet Take 1 tablet (500 mg) by mouth as directed. Takes as needed for headaches 025 Discontinued degarelix (FIRMAGON) 120 mg/3 mL solr injection Inject 6 mL (240 mg) under the skin once. 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 Date Type Department Care Team Description 01/17/2025 7:46 AM UNIT CONTROL WORKER - 01/17/2025 11:59 PM UNIT CONTROL WORKER Hospital Encounter Rehabilitation Services [address] [facility], 1st Floor [address] [place] [address] Ajit Pollard MD Berry, Joanna Yuh-Ling, LEAK PATCHER Other abnormalities of gait and mobility; At increased risk for falls; Metastatic malignant neoplasm to bone; History of craniotomy Discharge Disposition: Home 01/17/2025 Specialty Pharmacy MDA AMB RX SPEC ACB [address] [place] [address] Robyn Garcia, [facility] Refill Coordination Outreach - darolutamide (Nubeqa) for Prostate Cancer 01/15/2025 3:15 PM UNIT CONTROL WORKER Telemedicine [facility] - Oncology [address] [facility], 7th [place] [address] Ajit Pollard MD Adenocarcinoma of prostate (Primary Dx) 01/15/2025 7:48 AM UNIT CONTROL WORKER - 01/15/2025 11:59 PM UNIT CONTROL WORKER Hospital Encounter Rehabilitation Services [address] [facility] Main [facility], 1st Floor [address] [place] [address] Ajit Pollard MD Paddison, Nancy, LEAK PATCHER Other abnormalities of gait and mobility; At increased risk for falls; Metastatic malignant neoplasm to bone; History of craniotomy Discharge Disposition: Home 01/15/2025 Travel 01/10/2025 3:00 PM [facility] - Oncology [address] [place] [address], [address] [facility] [place] [address] Ajit Pollard MD Cohen, Arby S, SECURITY SYSTEM INSTALLER Adenocarcinoma of prostate (Primary Dx) 01/10/2025 8:28 AM UNIT CONTROL WORKER - 01/10/2025 11:59 PM UNIT CONTROL WORKER Hospital Encounter Rehabilitation Services [facility], 1st Floor [address] [place] [address] Ajit Pollard MD Berry, Joanna Yuh-Ling, LEAK PATCHER Other abnormalities of gait and mobility; At increased risk for falls; Metastatic malignant neoplasm to bone; History of craniotomy Discharge Disposition: Home 01/10/2025 Travel 01/06/2025 8:37 AM UNIT CONTROL WORKER - 01/06/2025 11:59 PM UNIT CONTROL WORKER Hospital Encounter Rehabilitation Services [facility] Main [facility], 1st Floor [address] [place] [address] Ajit Pollard MD Oyelami, M Victor, PT Other abnormalities of gait and mobility (Primary Dx); Adenocarcinoma of prostate; At increased risk for falls; Metastatic malignant neoplasm to bone; History of craniotomy Discharge Disposition: Home 01/06/2025 Travel 01/02/2025 Specialty Pharmacy MDA AMB RX SPEC ACB [address] [place] [phone] Geoff Jasso, PharmD Initial Refill Managment Patient Education for Prostate Cancer, Set up Initial Fill for Prostate Cancer, Benefits Investigation for Prostate Cancer 12/27/2024 8:30 AM UNIT CONTROL WORKER Follow-Up [facility] - Oncology [address] [place] [address], [address] [place] [address] Ajit Pollard MD Adenocarcinoma of prostate (Primary Dx); Metastatic malignant neoplasm to bone; 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; Anemia in neoplastic disease; Nocturia; Neoplasm related pain (acute) (chronic) 12/27/2024 6:10 AM UNIT CONTROL WORKER - 12/27/2024 11:59 PM UNIT CONTROL WORKER Hospital Encounter [facility] [address] [place] [address] Ajit Pollard MD Adenocarcinoma of prostate Discharge Disposition: Home 12/27/2024 Specialty Pharmacy MDA AMB RX SPEC ACB [address] [place] [address] Tammie Vicente CPhT 12/27/2024 Orders Only [facility] On[facility] [address] [place] [address] Coreen Shin, PharmD Adenocarcinoma of prostate (Primary Dx); Metastatic malignant neoplasm to bone; 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 12/27/2024 Travel 12/06/2024 Orders Only [facility] [address] [place] [address], [address] [place] [address] Romina Sweeney, PharmD Adenocarcinoma of prostate (Primary Dx) 12/06/2024 Orders Only [facility] [address] [place] [address], [address] [place] [address] Ajit Pollard MD Adenocarcinoma of prostate (Primary Dx) 11/29/2024 4:15 PM UNIT CONTROL WORKER Ancillary Procedure Radiology Outpatient Center [address] [place] [address] Ajit Pollard MD Adenocarcinoma of prostate 11/29/2024 1:00 PM UNIT CONTROL WORKER Infusion [facility] - Infusion [address] [place] [address] Giuliana James, Nilesh Anderson RN Adenocarcinoma of prostate (Primary Dx) 11/29/2024 Travel 11/28/2024 10:00 AM UNIT CONTROL WORKER Ancillary Procedure MD Ab [address] [address] Ajit Pollard MD 11/28/2024 7:30 AM UNIT CONTROL WORKER Ancillary Procedure MD Berger [address] [address] Ajit Pollard MD Adenocarcinoma of prostate 11/26/2024 11:40 AM UNIT CONTROL WORKER Ancillary Procedure MD Ab [address] [address] Ajit Pollard MD Adenocarcinoma of prostate 11/26/2024 Orders Only [facility] On[facility] [address] [place] [address], [address] [place] [address] Giuliaan James APRN 11/26/2024 Orders Only [facility] [address] [place] [address], [address] [place] [address] Giuliana James, NICOLAS Adenocarcinoma of prostate (Primary Dx) 11/22/2024 1:00 PM UNIT CONTROL WORKER - 11/22/2024 11:59 PM UNIT CONTROL WORKER Hospital Encounter [facility] [address] [place] [address] Ajit Pollard MD Adenocarcinoma of prostate Discharge Disposition: Home 11/22/2024 12:00 PM UNIT CONTROL WORKER Office Visit [facility] [address] [place] [address], [address] [place] [address] Lorena Lutz MD Subudhi, Sumit, MD Adenocarcinoma of prostate (Primary Dx); Metastatic malignant neoplasm to bone; 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; Overweight; Nocturia; Neoplasm related pain (acute) (chronic); Anemia in neoplastic disease; Cerebral seizure; History of craniotomy; Osteoarthritis of left knee joint; Mixed hyperlipidemia; Hypertension 11/22/2024 Travel 11/18/2024 9:30 AM UNIT CONTROL WORKER NPR MDA PATIENT ACCESS Lorena Lutz MD 11/01/2024 Lab Requisition [facility] Rich Posada MD Holley, Laurie Sisemore, MD 10/22/2024 8:15 PM UNIT CONTROL WORKER Ancillary Procedure [facility] [address] [place] [address] Ajit Pollard MD Cancer 10/22/2024 8:10 PM UNIT CONTROL WORKER Ancillary Procedure [facility] [address] [place] [address] Ajit Pollard MD Cancer 10/22/2024 8:05 PM UNIT CONTROL WORKER Ancillary Procedure [facility] [address] [place] [address] Ajit Pollard MD Cancer 10/22/2024 8:00 PM UNIT CONTROL WORKER Ancillary Procedure [facility] [address] [place] [address] Ajit Pollard MD Cancer after 01/22/2024 Surgical History Surgery Date Site/Laterality Comments CEREBRAL EMBOLIZATION 09/24/2024 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 CRANIOTOMY 10/07/2024 Left Left frontoparietal for subdural hematoma Medical History Medical History Date Comments Functional visual loss 10/11/2024 Anemia 09/13/2024 Chronic intracranial subdural hematoma 08/2024 Adenocarcinoma of prostate 09/30/2024 Overweight Seizures complicating intracranial hemorrhage Mixed hyperlipidemia Hypertension Family History Medical History Relation Name Comments Prostate cancer Brother -Unknown cancer Mother -Unknown cancer Paternal Aunt -Unknown cancer Paternal Grandmother Relation Name Status Comments Brother Alive Mother Paternal Aunt Paternal Grandmother Social History Tobacco Use Types Packs/Day Years Used Date Smoking Tobacco: Never Smokeless Tobacco: Never Tobacco Cessation:Counseling Given: Not Answered Alcohol Use Standard Drinks/Week Comments Not Currently 36 (1 standard drink = 0.6 oz pu re alcohol) Stop drinking 34 years.. Education Answer Date Recorded What is the highest level of school you have completed or the highest degree you have received? GED or equivalent Sex and Gender Information Value Date Recorded Sex Assigned at Male 10/16/2024 3:51 PM UNIT CONTROL WORKER Legal Sex Male 2:48 PM UNIT CONTROL WORKER Gender Identity Male 10/16/2024 3:51 PM UNIT CONTROL WORKER Sexual Orientation Straight 10/16/2024 3: 51 PM UNIT CONTROL WORKER Obstetrics History Last Filed Vital Signs Vital Sign Reading Time Taken Comments Blood Pressure 115/67 01/17/2025 8:00 AM UNIT CONTROL WORKER Pulse 61 01/17/2025 8:00 AM UNIT CONTROL WORKER Temperature 37 C (98.6 F) 12/27/2024 7:49 AM UNIT CONTROL WORKER Respiratory Rate 18 12/27/2024 7:49 AM UNIT CONTROL WORKER Oxygen Saturation 99% 01/17/2025 8:00 AM UNIT CONTROL WORKER Inhaled Oxygen Concentration - - Weight 78.1 kg (172 lb 2.9 oz) 12/27/2024 7:43 A M UNIT CONTROL WORKER Height 158 cm (5' 2.21") 12/27/2024 7:43 AM UNIT CONTROL WORKER Body Mass Index 31.28 12/27/2024 7:43 AM UNIT CONTROL WORKER Plan of Treatment Upcoming Encounters Date Type Department Care Team (Late st Contact Info) Description 01/22/2025 8:00 AM UNIT CONTROL WORKER Appointment Rehabilitation Services [address] [place] [address], 1st Floor [address] [place] [address] Ajit Pollard MD [address] [place] [address] [email or web address] Sivan Gray, LEAK PATCHER [address] [place] [address] [email or web address] kaden 01/24/2025 8:45 AM UNIT CONTROL WORKER Appointment [facility] [address] [place] [address] Ajit Pollard MD [address] [place] [address] [email or web address] .[email or web address] 01/24/2025 10:30 AM UNIT CONTROL WORKER Follow-Up [facility] - Oncology [address] [place] [address], 7th [place] [address] Ajit Pollard MD [address] [place] [address] [email or web address] .[facility] 01/24/2025 12:30 PM UNIT CONTROL WORKER Infusion [facility] - Genitourinary Center [address] [place] [address], 8th [place] [address] Ajit Pollard MD [address] [place] [address] [email or web address] .[facility] 01/29/2025 8:00 AM UNIT CONTROL WORKER Appointment Rehabilitation Services [address] [place] [address], 1st Floor [address] [place] [address] Ajit Pollard MD [address] [place] [address] [email or web address]@[email or web address] .[facility] Genet May, LEAK PATCHER [facility] [place] [address] [email or web address] 01/31/2025 9:00 AM UNIT CONTROL WORKER Appointment Rehabilitation Services [address] [place] [address], 1st Floor [address] [place] [address] Ajit Pollard MD [address] [place] [phone] [email or web address]@[facility] .[facility] Sivan Gray, LEAK PATCHER [facility] [place] [address] [email or web address] 02/05/2025 8:00 AM CDT Appointment Rehabilitation Services [address] [facility] Main Bldg, 1st Floor [address] [place] [address] Ajit Pollard MD [address] [place] [address] [email or web address]@[email or web address] .[facility] Eric Gutierrez, PT [facility] [place] [address] Paul@[email or web address] .[facility] 02/07/2025 10:00 AM CDT Appointment Rehabilitation Services [address] [facility] Main Bldg, 1st Floor [address] [place] [address] Ajit Pollard MD [address] [place] [address] [email or web address]@[email or web address] .[facility] Eric Gutierrez, PT [facility] [place] [address] Paul@[email or web address] .[facility] 02/12/2025 11:00 AM CDT Appointment Rehabilitation Services [address] [facility] Main Bldg, 1st Floor [address] [place] [address] Ajit Pollard MD [address] [place] [address] [email or web address]@[email or web address] .[facility] Genet May PTA [address] [place] [address] [email or web address]. [facility] 02/14/2025 9:00 AM CDT Appointment Rehabilitation Services [address] [facility] Main Bldg, 1st Floor [address] [place] [address] Ajit Pollard MD [address] [place] [address] [email or web address]@[email or web address] .[facility] Eric Gutierrez, PT [facility] [place] [address] [email or web address] .[facility] 02/19/2025 10:00 AM CDT Appointment Rehabilitation Services [address] [place] [address] Main Bldg, 1st Floor [address] [place] [address] Ajit Pollard MD [address] [place] [phone] [email or web address]@[email or web address] .[facility] Sivan Gray, LEAK PATCHER [address] [place] [address] [email or web address] 02/21/2025 11:00 AM CDT Appointment Rehabilitation Services [address] [place] [address] Main Bldg, 1st Floor [address] [place] [address] Ajit Pollard MD [address] [place] [address] [email or web address]@[email or web address] .[facility] Eric Gutierrez, PT [address] [place] [address] [email or web address] .[facility] 02/26/2025 11:00 AM CDT Appointment Rehabilitation Services [address] [place] [address] Main Bldg, 1st Floor [address] [place] [address] Ajit Pollard MD [address] [place] [address] [email or web address]@[facility] .[facility] Genet May, LEAK PATCHER [address] [place] [address] [email or web address]. [facility] 02/28/2025 11:00 AM CDT Appointment Rehabilitation Services [address] [place] [address] Main Bldg, 1st Floor [address] [place] [address] Ajit Pollard MD [address] [place] [address] [email or web address]@[facility] .[facility] Eric Gutierrez, PT [address] [place] [address] Paul@[email or web address] .[facility] 03/05/2025 11:00 AM CDT Appointment Rehabilitation Services [address] [place] [address] Main dg, 1st Floor [address] [place] [address] Ajit Pollard MD [address] [place] [address] [email or web address]@[facility] .[facility] Sivan Gray, LEAK PATCHER [address] [place] [address] [email or web address]. kaden 03/07/2025 11:00 AM CDT Appointment Rehabilitation Services [address] [place] [address] Main Bldg, 1st Floor [address] [place] [address] Ajit Pollard MD [address] [place] [address] [email or web address]@[email or web address] .[facility] Eric Gutierrez, PT [address] [place] [address] [email or web address] .[facility] Health Maintenance Due Date Last Done Comments COVID-19 Vaccine (#1) 1970 Pneumococcal Vaccine: 50+ Years (1 of 1 - PCV) 014 Influenza Vaccine (#1) 2024 Procedures Procedure Name Priority Date/Time Associated Diagnosis Comments .CBC Routine 12/27/2024 6:36 AM UNIT CONTROL WORKER Adenocarcinoma of prostate VITAMIN D 25 HYDROXY LEVEL Routine 12/27/2024 6:36 AM UNIT CONTROL WORKER Adenocarcinoma of prostate HEMOGLOBIN A1C Routine 12/27/2024 6:36 AM UNIT CONTROL WORKER Adenocarcinoma of prostate LIPID PANEL Routine 12/27/2024 6:36 AM UNIT CONTROL WORKER Adenocarcinoma of prostate PROSTATIC ACID PHOSPHATASE Routine 12/27/2024 6:36 AM UNIT CONTROL WORKER Adenocarcinoma of prostate CARCINOEMBRYONIC ANTIGEN Routine 025 6:36 AM UNIT CONTROL WORKER Adenocarcinoma of prostate TOTAL PROTEIN Routine 12/27/2024 6:36 AM UNIT CONTROL WORKER Adenocarcinoma of prostate TESTOSTERONE LEVEL Routine 12/27/2024 6: 36 AM UNIT CONTROL WORKER Adenocarcinoma of prostate PROSTATE SPECIFIC ANTIGEN Routine 12/27/2024 6:36 AM UNIT CONTROL WORKER Adenocarcinoma of prostate PHOSPHORUS LEVEL Routine 12/27/2024 6:36 AM UNIT CONTROL WORKER Adenocarcinoma of prostate MAGNESIUM LEVEL Routine 12/27/2024 6:36 AM UNIT CONTROL WORKER Adenocarcinoma of prostate LACTATE DEHYDROGENASE Routine 12/27/2024 6:36 AM UNIT CONTROL WORKER Adenocarcinoma of prostate GLUCOSE, RANDOM Routine 12/27/2024 6:36 AM UNIT CONTROL WORKER Adenocarcinoma of prostate FRACTIONATED BILIRUBIN Routine 6:36 AM UNIT CONTROL WORKER Adenocarcinoma of prostate ELECTROLYTE PANEL Routine 12/27/2024 6:3 6 AM UNIT CONTROL WORKER Adenocarcinoma of prostate CREATININE Routine 12/27/2024 6:36 AM UNIT CONTROL WORKER Adenocarcinoma of prostate COMPLETE BLOOD COUNT W/ DIFFERENTIAL Routine 12/27/2024 6:36 AM UNIT CONTROL WORKER Adenocarcinoma of prostate CALCIUM LEVEL Routine 12/27/2024 6:36 AM UNIT CONTROL WORKER Adenocarcinoma of prostate BLOOD UREA NITROGEN Routine 12/27/2024 6 :36 AM UNIT CONTROL WORKER Adenocarcinoma of prostate ASPARTATE AMINOTRANSFERASE Routine 12/27/2024 6:36 AM UNIT CONTROL WORKER Adenocarcinoma of prostate ALKALINE PHOSPHATASE Routine 12/27/2024 6:36 AM UNIT CONTROL WORKER Adenocarcinoma of prostate ALBUMIN LEVEL Routine 12/27/2024 6:36 AM UNIT CONTROL WORKER Adenocarcinoma of prostate ALANINE AMINOTRANSFERASE Routine 6:36 AM UNIT CONTROL WORKER Adenocarcinoma of prostate MRI CERVICAL THORACIC LUMBAR SPINE W WO CONTRAST Routine 11/29/2024 5:29 PM UNIT CONTROL WORKER Adenocarcinoma of prostate NM BONE SCAN WHOLE BODY Routine 11/28/19 10:23 AM UNIT CONTROL WORKER Adenocarcinoma of prostate CT CHEST ABDOMEN PELVIS W CONTRAST Routine 11/26/2024 10:32 AM UNIT CONTROL WORKER Adenocarcinoma of prostate .CBC Routine 11/22/2024 2:38 PM UNIT CONTROL WORKER Adenocarcinoma of prostate HEPATITIS C VIRUS ANTIBODY Routine 11/22/2024 2:38 PM UNIT CONTROL WORKER Adenocarcinoma of prostate THYROID STIMULATING HORMONE Routine 11/22/2024 2:38 PM UNIT CONTROL WORKER Adenocarcinoma of prostate VITAMIN D 25 HYDROXY LEVEL Routine 11/22/2024 2:38 PM UNIT CONTROL WORKER Adenocarcinoma of prostate HEMOGLOBIN A1C Routine 11/22/2024 2:38 PM UNIT CONTROL WORKER Adenocarcinoma of prostate LIPID PANEL Routine 11/22/2024 2:38 PM UNIT CONTROL WORKER Adenocarcinoma of prostate PROSTATIC ACID PHOSPHATASE Routine 11/22/2024 2:38 PM UNIT CONTROL WORKER Adenocarcinoma of prostate CARCINOEMBRYONIC ANTIGEN Routine 024 2:38 PM UNIT CONTROL WORKER Adenocarcinoma of prostate TOTAL PROTEIN Routine 11/22/2024 2:38 PM UNIT CONTROL WORKER Adenocarcinoma of prostate TESTOSTERONE LEVEL Routine 11/22/2024 2: 38 PM UNIT CONTROL WORKER Adenocarcinoma of prostate PROSTATE SPECIFIC ANTIGEN Routine 11/22/2024 2:38 PM UNIT CONTROL WORKER Adenocarcinoma of prostate PHOSPHORUS LEVEL Routine 11/22/2024 2:38 PM UNIT CONTROL WORKER Adenocarcinoma of prostate MAGNESIUM LEVEL Routine 11/22/2024 2:38 PM UNIT CONTROL WORKER Adenocarcinoma of prostate LACTATE DEHYDROGENASE Routine 11/22/2024 2:38 PM UNIT CONTROL WORKER Adenocarcinoma of prostate GLUCOSE, RANDOM Routine 11/22/2024 2:38 PM UNIT CONTROL WORKER Adenocarcinoma of prostate FRACTIONATED BILIRUBIN Routine 2:38 PM UNIT CONTROL WORKER Adenocarcinoma of prostate ELECTROLYTE PANEL Routine 11/22/2024 2:3 8 PM UNIT CONTROL WORKER Adenocarcinoma of prostate CREATININE Routine 11/22/2024 2:38 PM UNIT CONTROL WORKER Adenocarcinoma of prostate COMPLETE BLOOD COUNT W/ DIFFERENTIAL Routine 11/22/2024 2:38 PM UNIT CONTROL WORKER Adenocarcinoma of prostate CALCIUM LEVEL Routine 11/22/2024 2:38 PM UNIT CONTROL WORKER Adenocarcinoma of prostate BLOOD UREA NITROGEN Routine 11/22/2024 2 :38 PM UNIT CONTROL WORKER Adenocarcinoma of prostate ASPARTATE AMINOTRANSFERASE Routine 11/22/2024 2:38 PM UNIT CONTROL WORKER Adenocarcinoma of prostate ALKALINE PHOSPHATASE Routine 11/22/2024 2:38 PM UNIT CONTROL WORKER Adenocarcinoma of prostate ALBUMIN LEVEL Routine 11/22/2024 2:38 PM UNIT CONTROL WORKER Adenocarcinoma of prostate ALANINE AMINOTRANSFERASE Routine 024 2:38 PM UNIT CONTROL WORKER Adenocarcinoma of prostate OSI CHEST Routine 10/04/2024 8:56 PM UNIT CONTROL WORKER Cancer OSI BONE SCAN Routine 10/02/2024 8:56 PM UNIT CONTROL WORKER Cancer PATHOLOGY OUTSIDE INTERPRETATION Routine 09/30/[address] CHEST ABDOMEN PELVIS Routine 09/28/2024 8:56 PM CDT Cancer OSI US ABDOMINAL COMPLETE Routine 09/26/2024 8:56 PM CDT Cancer after 01/22/2024 Results * Glucose, Random (12/27/2024 6:36 AM UNIT CONTROL WORKER) Only the most recent of2 resultswithin the time period is included. Glucose Random 100 70 - 199 mg/dL 12/27/2024 7:13 AM [facility] Blood Peripheral blood specimen / Unknown Venipuncture / Unknown 12/27/2024 6:36 AM UNIT CONTROL WORKER 12/27/2024 6:38 AM UNIT CONTROL WORKER Narrative [facility] - 12/27/2024 7:13 AM UNIT CONTROL WORKER Effective 06/22/16, the glucose reference intervals have been updated based on [place] [employer] guidelines (Standards of Medical Care in Diabetes 2016. Diabetes Care 2016; 39: S13-S22). Fasting blood glucose: Normal: 70-99 mg/dL Impaired fasting glucose (increased risk for diabetes or pre-diabetes): 100-125 mg/dL Diabetes mellitus: >/=126 mg/dL Random blood glucose: Normal: 70-199 mg/dL Note: Random glucose >100 mg/dL is associated with increased risk for diabetes Ajit Pollard MD LAB BLOOD ORDERABLES Final Resu lt [facility] [address] [place] [address] * (ABNORMAL) .CBC (12/27/2024 6:36 AM [facility] [[email or web address] Only the most recent of2 resultswithin the time period is included. [facility] White Blood Cell 4.8 4.1 - 10.5 K/uL 12/27/2024 6:48 AM [facility] Red Blood Cell 4.27(L) 4.30 - 6.04 M/uL 12/27/2024 6:48 AM [facility] Hemoglobin 11.3(L) 13.3 - 17.4 g/dL 12/27/2024 6:48 AM [facility] Hematocrit 35.2(L) 39.5 - 51.8 % 12/27/2024 6:48 AM [facility] Mean Cell Volume 82 82 - 99 fL 12/27/2024 6:48 AM [facility] Mean Cell Hemoglobin 26.5(L) 26.6 - 33.2 pg 12/27/2024 6:48 AM [facility] Mean Cell Hemoglobin Concentration 32.1 31.1 - 35.2 g/dL 12/27/2024 6:48 AM [facility] RDW-SD 45.0 37.5 - 49.7 fL 12/27/2024 6:48 AM [facility] Red Cell Diameter Width 15.1 11.6 - 15.5 % 12/27/2024 6:48 AM [facility] Platelet 164 160 - 397 K/uL 12/27/2024 6:48 AM [facility] Mean Platelet Volume 9.3 9.1 - 12.6 fL 12/27/2024 6:48 AM [facility] INRBC 0.0 0.0 - 0.1 /100 WBC 12/27/2024 6:48 AM [facility] Comment: The INRBC (instrument NRBC) value reflects the enumeration of nucleated red blood cells contained in a 200uL sample of whole blood analyzed by the instrument. This value may differ from the NRBC value reported in a manual differential, which is based on a 100 cell differential. Neutrophil % 38.7(L) 43.2 - 72.7 % 12/27/2024 6:48 AM [facility] Lymphocyte % 50.2(H) 16.8 - 46.2 % 12/27/2024 6:48 AM [facility] Monocyte % 5.4 5.1 - 12.5 % 12/27/2024 6:48 AM [facility] Eosinophil % 4.0 0.4 - 6.3 % 12/27/2024 6:48 AM [facility] Basophil % 1.5(H) 0.2 - 1.4 % 12/27/2024 6:48 AM [facility] IGRE % 0.2 0.1 - 1.5 % 12/27/2024 6:48 AM [facility] Comment:The IGRE% includes M etamyelocytes, Myelocytes and Promyelocytes. Neutrophil Abs 1.85(L) 1.95 - 7.25 K/uL 12/27/2024 6:48 AM [facility] Lymphocyte Abs 2.40 1.01 - 3.24 K/uL 12/27/2024 6:48 AM [facility] Monocyte Abs 0.26 0.24 - 0.85 K/uL 12/27/2024 6:48 AM [facility] Eosinophil Abs 0.19 0.02 - 0.50 K/uL 12/27/2024 6:48 AM [facility] Basophil Abs 0.07 0.02 - 0.09 K/uL 12/27/2024 6:48 AM [facility] IG Abs 0.01 0.01 - 0.12 K/uL 12/27/2024 6:48 AM [facility] Blood Peripheral blood specimen / Unknown Venipuncture / Unknown 12/27/2024 6:36 AM UNIT CONTROL WORKER 12/27/2024 6:37 AM [facility] [[email or web address]] us Ajit Pollard MD LAB BLOOD ORDERABLES Final Resu lt [facility] [address] [place] [address] * Fractionated Bilirubin (12/27/2024 6:36 AM UNIT CONTROL WORKER) Only the most recent of2 resultswithin the time period is included. Bilirubin Direct 0.1 0.0 - 0.2 mg/dL 12/27/2024 7:13 AM UNIT CONTROL WORKER [facility] Comment:Indocyanine Green (I CG) may cause falsely elevated bilirubin results. Total and direct bilirubin must not be measured from samples containing indocyanine green. Bilirubin Indirect 0.2 0.0 - 1.0 mg/dL 12/27/2024 7:13 AM UNIT CONTROL WORKER [facility] Bilirubin Total 0.3 0.0 - 1.2 mg/dL 12/27/2024 7:13 AM [facility] Comment:Indocyanine Green (I CG) may cause falsely elevated bilirubin results. Total and direct bilirubin must not be measured from samples containing indocyanine green. False elevation of total bilirubin can be seen in patients with IgG concentrations above 28 g/L. Blood Peripheral blood specimen / Unknown Venipuncture / Unknown 12/27/2024 6:36 AM UNIT CONTROL WORKER 12/27/2024 6:38 AM [facility] [[email or web address]] Ajit Pollard MD LAB BLOOD ORDERABLES Final Resu lt [facility] [address] [place] [address] * Prostatic Acid Phosphatase (12/27/2024 6:36 AM UNIT CONTROL WORKER) Only the most recent of2 resultswithin the time period is included. Pathologist [facility] Prostatic Acid Phosphatase 1.2 <=2.1 ng/mL 12/30/2024 9:11 AM [facility] Comment: ADDITIONAL INFORMATION The testing method is an immunoenzymatic assay manufactured by [employer] and performed on the S[employer] 2000. Values obtained with different assay methods or kits may be different and cannot be used interchangeably. Test results cannot be interpreted as absolute evidence for the presence or absence of malignant disease. Test Performed by: [facility] [address] [place] [address] Spreader Operator: Radha Queen Ph.D.; CLIA# [id number] Blood Peripheral blood specimen / Unknown Venipuncture / Unknown 12/27/2024 6:36 AM UNIT CONTROL WORKER 12/27/2024 6:37 AM UNIT CONTROL WORKER Ajit Pollard MD LAB BLOOD ORDERABLES Final Resu lt Performing Organization Address City/[facility] Co de Phone Number [facility] * Vitamin D 25OH (12/27/2024 6:36 AM UNIT CONTROL WORKER) Only the most recent of2 resultswithin the time period is included. Pathologist [facility] Vitamin D 25 OH 30 30 - 100 ng/mL 12/27/2024 7:51 AM UNIT CONTROL WORKER [facility] Blood Peripheral blood specimen / Unknown Venipuncture / Unknown 12/27/2024 6:36 AM UNIT CONTROL WORKER 12/27/2024 6:37 AM UNIT CONTROL WORKER Narrative [facility] - 12/27/2024 7:51 AM UNIT CONTROL WORKER Reference Range: Deficiency: <=20 ng/mL Insufficiency: 21-29 ng/mL Sufficiency: 30-100 ng/mL Potential toxicity: >100 ng/mL Result [facility] Ajit Pollard MD LAB BLOOD ORDERABLES Final Resu lt Performing Organization Address City/[facility] Co de Phone Number [facility] Unless otherwise noted, all lab tests performed by: Division of Pathology and Laboratory Medicine [address] [place] [id number] * Blood Urea Nitrogen (12/27/2024 6:36 AM UNIT CONTROL WORKER) Only the most recent of2 resultswithin the time period is included. Pathologist [facility] BUN 20 6 - 23 mg/dL 12/27/2024 7 :13 AM UNIT CONTROL WORKER [facility] Blood Peripheral blood specimen / Unknown Venipuncture / Unknown 12/27/2024 6:36 AM UNIT CONTROL WORKER 12/27/2024 6:38 AM UNIT CONTROL WORKER Ajit Pollard MD LAB BLOOD ORDERABLES Final Resu lt Performing Organization Address [facility] de Phone Number [address] [place] [address] * Alanine Aminotransferase (12/27/2024 6:36 AM UNIT CONTROL WORKER) Only the most recent of2 resultswithin the time period is included. ALT 18 <=41 U/L 12/27/2024 7:1 3 AM UNIT CONTROL WORKER [facility] Blood Peripheral blood specimen / Unknown Venipuncture / Unknown 12/27/2024 6:36 AM UNIT CONTROL WORKER 12/27/2024 6:38 AM UNIT CONTROL WORKER Ajit Pollard MD LAB BLOOD ORDERABLES Final Resu lt Performing Organization Address [facility] de Phone Number [address] [place] [address] * Aspartate Aminotransferase (12/27/2024 6:36 AM UNIT CONTROL WORKER) Only the most recent of2 resultswithin the time period is included. AST 18 <=40 U/L 12/27/2024 7:1 3 AM UNIT CONTROL WORKER [facility] Blood Peripheral blood specimen / Unknown Venipuncture / Unknown 12/27/2024 6:36 AM UNIT CONTROL WORKER 12/27/2024 6:38 AM UNIT CONTROL WORKER Ajit Pollard MD LAB BLOOD ORDERABLES Final Resu lt Performing Organization Address [facility] Co de Phone Number [address] [place] [address] * (ABNORMAL) Testosterone Level Total (12/27/2024 6:36 AM UNIT CONTROL WORKER) Only the most recent of2 resultswithin the time period is included. Testosterone Total <3(L) 193 - 740 ng/dL 12/27/2024 7:51 AM UNIT CONTROL WORKER [facility] Blood Peripheral blood specimen / Unknown Venipuncture / Unknown 12/27/2024 6:36 AM UNIT CONTROL WORKER 12/27/2024 6:37 AM UNIT CONTROL WORKER Ajit Pollard MD LAB BLOOD ORDERABLES Final Resu lt [facility] Unless otherwise noted, all lab tests performed by: Division of Pathology and Laboratory Medicine [address] [place] [address] * Total Protein (12/27/2024 6:36 AM UNIT CONTROL WORKER) Only the most recent of2 resultswithin the time period is included. Pathologist [facility] Tot Protein 7.7 6.4 - 8.3 gm/dL 12/27/2024 7:13 AM [facility] Blood Peripheral blood specimen / Unknown Venipuncture / Unknown 12/27/2024 6:36 AM UNIT CONTROL WORKER 12/27/2024 6:38 AM [facility] - 12/27/2024 7:13 AM UNIT CONTROL WORKER Reference range established based on adult population Ajit Pollard MD LAB BLOOD ORDERABLES Final Resu lt [facility] [address] [place] [address] * Prostate Specific Antigen (PSA) Diagnostic (12/27/2024 6:36 AM UNIT CONTROL WORKER) Only the most recent of2 resultswithin the time period is included. [facility] Prostate Specific Antigen 2.5 <=4.0 ng/mL 12/27/2024 7:31 AM [facility] PSA Indication Diagnostic 12/27/2024 7:31 AM [facility] Blood Peripheral blood specimen / Unknown Venipuncture / Unknown 12/27/2024 6:36 AM UNIT CONTROL WORKER 12/27/2024 6:38 AM [facility] - 12/27/2024 7:31 AM UNIT CONTROL WORKER The assay is intended for use in males aged 50 years or older. Reference ranges have not been validated for patients outside those age ranges; therefore, the results should be interpreted in the context of the patient's clinical condition. Results greater than 4519 ng/mL may not be reliable due to matrix effect with extended dilution as it exceeds the public health program manager's recommended limit. Caution should be exercised when interpreting such values and done in conjunction with clinical context. This test is measured by electrochemiluminescence immunoassay on [employer] immunoassay analyzers. Results obtained in different methods are not interchangeable. Ajit Pollard MD LAB BLOOD ORDERABLES Final Resu lt Performing Organization Address City/[facility]/ZIP Co de Phone Number [address] [place] [address] * (ABNORMAL) Phosphorus Level (12/27/2024 6:36 AM UNIT CONTROL WORKER) Only the most recent of2 resultswithin the time period is included. Phosphorus Level 5.4(H) 2.5 - 4.5 mg/dL 12/27/2024 7:12 AM UNIT CONTROL WORKER [facility] Blood Peripheral blood specimen / Unknown Venipuncture / Unknown 12/27/2024 6:36 AM UNIT CONTROL WORKER 12/27/2024 6:38 AM UNIT CONTROL WORKER Ajit Pollard MD LAB BLOOD ORDERABLES Final Resu lt Performing Organization Address [facility] Co de Phone Number [address] [place] [address] * (ABNORMAL) Alkaline phosphatase (12/27/2024 6:36 AM UNIT CONTROL WORKER) Only the most recent of2 resultswithin the time period is included. Alkaline Phosphatase 314(H) 40 - 129 U/L 12/27/2024 7:12 AM UNIT CONTROL WORKER [facility] Blood Peripheral blood specimen / Unknown Venipuncture / Unknown 12/27/2024 6:36 AM UNIT CONTROL WORKER 12/27/2024 6:38 AM UNIT CONTROL WORKER Ajit Pollard MD LAB BLOOD ORDERABLES Final Resu lt Performing Organization Address [facility]/ZIP Co de Phone Number [address] [place] [address] * Magnesium Level (12/27/2024 6:36 AM UNIT CONTROL WORKER) Only the most recent of2 resultswithin the time period is included. Magnesium Level 2.2 1.6 - 2.6 mg/dL 12/27/2024 7:12 AM [facility] Blood Peripheral blood specimen / Unknown Venipuncture / Unknown 12/27/2024 6:36 AM UNIT CONTROL WORKER 12/27/2024 6:38 AM UNIT CONTROL WORKER Ajit Pollard MD LAB BLOOD ORDERABLES Final Resu lt Performing Organization Address [facility] de Phone Number [address] [place] [address] * Lactate dehydrogenase (12/27/2024 6:36 AM UNIT CONTROL WORKER) Only the most recent of2 resultswithin the time period is included. Pathologist [facility] LDH 167 135 - 225 U/L 12/27/2024 7:18 AM UNIT CONTROL WORKER [facility] Blood Peripheral blood specimen / Unknown Venipuncture / Unknown 12/27/2024 6:36 AM UNIT CONTROL WORKER 12/27/2024 6:38 AM UNIT CONTROL WORKER Narrative [facility] - 12/27/2024 7:18 AM UNIT CONTROL WORKER Results greater than 1651 U/L may not be reliable due to matrix effect with extended dilution as it exceeds the public health program manager's recommended limit. Caution should be exercised when interpreting such values and done in conjunction with clinical context. Ajit Pollard MD LAB BLOOD ORDERABLES Final Resu lt Performing Organization Address [facility] de Phone Number [address] [place] [address] * Hemoglobin A1c (12/27/2024 6:36 AM UNIT CONTROL WORKER) Only the most recent of2 resultswithin the time period is included. Pathologist [facility] Hemoglobin A1c 5.2 4.3 - 5.6 % 12/27/2024 7:19 AM UNIT CONTROL WORKER [facility] Blood Peripheral blood specimen / Unknown Venipuncture / Unknown 12/27/2024 6:36 AM UNIT CONTROL WORKER 12/27/2024 6:37 AM UNIT CONTROL WORKER Narrative [facility] - 12/27/2024 7:19 AM UNIT CONTROL WORKER HbA1c values >=6.5% are diagnostic of diabetes mellitus. Diagnosis should be confirmed by repeat testing. Therapeutic Action suggested: >8.0% HbA1c; Goal of therapy: <7.0% HbA1c Ajit Pollard MD LAB BLOOD ORDERABLES Final Resu lt [facility] Unless otherwise noted, all lab tests performed by: Division of Pathology and Laboratory Medicine [address] [place] [id number] * Creatinine (12/27/2024 6:36 AM UNIT CONTROL WORKER) Only the most recent of2 resultswithin the time period is included. Creatinine 0.97 0.67 - 1.17 mg/dL 12/27/2024 7:13 AM [facility] [[email or web address]] [facility] eGFR 89 >=60 mL/min/1.7 3 sq. m 12/27/2024 7:13 AM [facility] [[email or web address] Comment: The eGFRcr is calculated with the 2020 CKD-EPI creatinine equation using creatinine, patient's age, and sex for adults 18 years of age and older. Other factors, especially muscle mass, may affect accuracy and need to be considered. According to the Kidney Disease: Improving Global Outcomes (KDIGO) CKD Work Group 2012 Clinical Practice Guideline, chronic kidney disease (CKD) is defined as the abnormalities of kidney structure or function, present for more than 3 months, with implications for health. CKD should be classified by cause, GFR category, and albuminuria category. KDIGO guidelines provide the following GFR categories. Stage / Description / GFR mL/min/1.73 m2: G1* / Normal or high / >= 90 G2* / Mildly decreased / 60-89 G3a / Mildly to moderately decreased / 45-59 G3b / Moderately to severely decreased / 30-44 G4 / Severely decreased / 15-29 G5 / Kidney failure / <15 *In the absence of evidence of kidney damage, neither G1 nor G2 fulfill criteria for CKD. Blood Peripheral blood specimen / Unknown Venipuncture / Unknown 12/27/2024 6:36 AM UNIT CONTROL WORKER 12/27/2024 6:38 AM UNIT CONTROL WORKER Ajit Pollard MD LAB BLOOD ORDERABLES Final Resu lt [address] [place] [address] * Carcinoembryonic Antigen (12/27/2024 6:36 AM UNIT CONTROL WORKER) Only the most recent of2 resultswithin the time period is included. Carcinoembryonic Antigen 2.8 <=3.8 ng/mL 12/27/2024 7:31 AM UNIT CONTROL WORKER [facility] Blood Peripheral blood specimen / Unknown Venipuncture / Unknown 12/27/2024 6:36 AM UNIT CONTROL WORKER 12/27/2024 6:38 AM UNIT CONTROL WORKER Narrative [facility] - 12/27/2024 7:31 AM UNIT CONTROL WORKER Reference Ranges (age 20-69 years): Non-smoker: <= 3.8 ng/mL Smoker: <= 5.5 ng/mL This test is measured by electrochemiluminescence immunoassay on [employer] immunoassay analyzers. Results obtained in different methods are not interchangeable. Ajit Pollard MD LAB BLOOD ORDERABLES Final Resu lt Performing Organization Address [facility] de Phone Number [address] [place] [address] * Calcium Level Total (12/27/2024 6:36 AM UNIT CONTROL WORKER) Only the most recent of2 resultswithin the time period is included. Calcium Level Total 9.8 8.2 - 10.2 mg/dL 12/27/2024 7:13 AM [facility] Blood Peripheral blood specimen / Unknown Venipuncture / Unknown 12/27/2024 6:36 AM UNIT CONTROL WORKER 12/27/2024 6:38 AM UNIT CONTROL WORKER Ajit Pollard MD LAB BLOOD ORDERABLES Final Resu lt Performing Organization Address [facility] Co de Phone Number [address] [place] [address] * Albumin Level (12/27/2024 6:36 AM UNIT CONTROL WORKER) Only the most recent of2 resultswithin the time period is included. Albumin Level 4.8 3.5 - 5.2 gm/dL 12/27/2024 7:13 AM [facility] Blood Peripheral blood specimen / Unknown Venipuncture / Unknown 12/27/2024 6:36 AM UNIT CONTROL WORKER 12/27/2024 6:38 AM UNIT CONTROL WORKER us Ajit Pollard MD LAB BLOOD ORDERABLES Final Resu lt [facility] [address] [facility] [place] [address] * (ABNORMAL) Lipid Panel (12/27/2024 6:36 AM UNIT CONTROL WORKER) Only the most recent of2 resultswithin the time period is included. Cholesterol Total 252(H) <200 mg/dL 12/27/2024 7:13 AM [facility] Comment: ATP III Classification of Total Cholesterol - Primary Target of Therapy (in mg/dL): <200 Desirable 200-239 Borderline high >=240 High Triglyceride 160(H) <150 mg/dL 12/27/2024 7:13 AM [facility] Comment: ATP III Classification of Serum Triglycerides Primary Target of Therapy (in mg/dL): <150 Normal 150-199 Borderline high 200-499 High >=500 Very high Non-fasting triglycerides >200 mg/dL may be followed up with a fasting Lipid Panel. Calculated LDL-C may be falsely decreased when non-fasting triglycerides >200 mg/dL. HDL Cholesterol 51 >=40 mg/dL 12/27/2024 7:13 AM [facility] LDL Cholesterol 169(H) <=100 mg/dL 12/27/2024 7:13 AM [facility] Comment: ATP III Classification of LDL Cholesterol Primary Target of Therapy (in mg/dL): <100 Optimal 100-129 Near optimal/above optimal 130-159 Borderline high 160-189 High >=190 Very high Very Low Density Lipoprotein 32 mg/dL 12/27/2024 7:13 AM [facility] Is patient fasting? Yes 12/27 7:13 AM [facility] Blood Peripheral blood specimen / Unknown Venipuncture / Unknown 12/27/2024 6:36 AM UNIT CONTROL WORKER 12/27/2024 6:38 AM UNIT CONTROL WORKER Ajit Pollard MD LAB BLOOD ORDERABLES Final Resu lt Performing Organization Address [facility]/ZIP Co de Phone Number [facility] [address] [place] [address]. [address] [place] [address] * Electrolyte panel (12/27/2024 6:36 AM UNIT CONTROL WORKER) Only the most recent of2 resultswithin the time period is included. Sodium Level 136 136 - 145 mmol/L 12/27/2024 7:13 AM [facility] Potassium Level 4.2 3.4 - 4.5 mmol/L 12/27/2024 7:13 AM [facility] Chloride 102 98 - 107 mmol/L 12/27/2024 7:13 AM [facility] CO2 25 22 - 29 mmol/L 12/27/2024 7:13 AM [facility] Anion Gap 9 4 - 14 mmol/L 12/27/2024 7:13 AM [facility] Blood Peripheral blood specimen / Unknown Venipuncture / Unknown 12/27/2024 6:36 AM UNIT CONTROL WORKER 12/27/2024 6:38 AM UNIT CONTROL WORKER Ajit Pollard MD LAB BLOOD ORDERABLES Final Resu lt Performing Organization Address [facility] Co de Phone Number [address] [place] [address] * MRI CERVICAL THORACIC LUMBAR SPINE W WO CONTRAST (11/29/2024 5:29 PM UNIT CONTROL WORKER) Anatomical Region Laterality Modality Spine, C-spine, T-spine, L-spine Magnetic Resonance 12/05/2024 5:23 PM UNIT CONTROL WORKER Impressions 12/05/2024 6:30 PM UNIT CONTROL WORKER 1. 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 Stable old midline to right L5 superior and inferior endplate pathologic Schmorl's nodes versus compression fracture deformities, without interval change dating back to at least 09/28/2024. No new pathologic compression fracture. No leptomeningeal, epidural or neural foraminal extension of disease. 2. Diffuse degenerative changes of cervical spine, worst at C5-C6 where moderate central canal stenosis noted. Moderate left C3-C4, at least moderate to marked right C5-C6 and marked left C6-C7 neural foraminal stenosis. Please correlate for possible impingement of exiting right C6 and left C7 nerve roots. ACTIONABLE ITEMS/RECOMMENDATIONS*: None. *An Actionable Finding is a finding that may be unrelated to the original reason for imaging but potentially actionable, meaning further investigation may be necessary. The Actionable Findings Vigilance Unit (AFVU) assists medical providers with responding to additional radiologic findings that are unexpected and potentially actionable. Narrative 12/05/2024 6:30 PM UNIT CONTROL WORKER FULL RESULT: Examination: MRI CERVICAL THORACIC LUMBAR SPINE W WO CONTRAST on 11/29/2024 5:29 PM. CLINICAL HISTORY: Metastatic prostate carcinoma, worsening back pain. INDICATION: worsening back pain with newly diagnosed metastatic prostate cancer COMPARISON: OSI CT CAP 09/28/2024 and bone scan 10/02/2024. CT CAP 11/26/2024. Bone scan 11/28/2024. TECHNIQUE: MRI of the cervical, thoracic and lumbosacral spine without and with IV contrast was performed. FINDINGS: SPINE COUNT: Lumbarization of S1. POSTTREATMENT FINDINGS: None. NEOPLASTIC FINDINGS: Intradural neoplastic findings: No evidence of malignancy. 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 Old midline to right L5 superior and inferior endplate pathologic Schmorl's nodes versus compression fracture deformities again noted without interval change dating back to at least 09/28/2024, without retropulsion. No epidural or neural foraminal extension of disease. NON-NEOPLASTIC FINDINGS: Alignment: Maintained. Instability: No imaging evidence of instability. Degenerative: Straightening of normal cervical lordosis is likely degenerative in etiology. Diffuse degenerative changes of cervical spine, worst at C5-C6 where moderate central canal stenosis is noted without cord impingement. Moderate left C3-C4, at least moderate to marked right C5-C6 and marked left C6-C7 neural foraminal stenosis noted. Please correlate for possible impingement of exiting right C6 and left C7 nerve roots. Other fractures: No acute non-pathological fracture. Visualized spinal cord: Unremarkable. Location of conus medullaris: L2-L3. OTHER PERTINENT POSITIVE AND NEGATIVE FINDINGS: Partially imaged sigmoid diverticulosis without diverticulitis. Procedure Note Kenton Alvarado MD - 12/05/2024 FULL RESULT: Examination: MRI CERVICAL THORACIC LUMBAR SPINE W WO CONTRAST on 55:29 PM. CLINICAL HISTORY: Metastatic prostate carcinoma, worsening back pain. INDICATION: worsening back pain with newly diagnosed metastatic prostatecancer COMPARISON: OSI CT CAP 09/28/2024 and bone scan 10/02/2024. CT CAP11/26/2024. Bone scan 11/28/2024. TECHNIQUE: MRI of the cervical, thoracic and lumbosacral spine without andwith IV contrast was performed. FINDINGS: SPINE COUNT: Lumbarization of S1. POSTTREATMENT FINDINGS: None. NEOPLASTIC FINDINGS: Intradural neoplastic findings: No evidence of malignancy. Extradural neoplastic findings: Marked diffuse osteoblastic metastaticdisease of imaged osseous architecture. Old midline to right L5 superior and inferior endplate pathologicSchmorl's nodes versus compression fracture deformities again notedwithout interval change dating back to at least 09/28/2024, withoutretropulsion. No epidural or neural foraminal extension of disease. NON-NEOPLASTIC FINDINGS: Alignment: Maintained. Instability: No imaging evidence of instability. Degenerative: Straightening of normal cervical lordosis is likelydegenerative in etiology. Diffuse degenerative changes of cervical spine,worst at C5-C6 where moderate central canal stenosis is noted without cordimpingement. Moderate left C3-C4, at least moderate to marked right C5-C6and marked left C6-C7 neural foraminal stenosis noted. Please correlatefor possible impingement of exiting right C6 and left C7 nerve roots. Other fractures: No acute non-pathological fracture. Visualized spinal cord: Unremarkable. Location of conus medullaris: L2-L3. OTHER PERTINENT POSITIVE AND NEGATIVE FINDINGS: Partially imaged sigmoiddiverticulosis without diverticulitis. IMPRESSION: 1. Marked diffuse osteoblastic metastatic disease of imaged osseousarchitecture. Stable old midline to right L5 superior and inferiorendplate pathologic Schmorl's nodes versus compression fracturedeformities, without interval change dating back to at least 09/28/2024.No new pathologic compression fracture. No leptomeningeal, epidural orneural foraminal extension of disease. 2. Diffuse degenerative changes of cervical spine, worst at C5-C6 wheremoderate central canal stenosis noted. Moderate left C3-C4, at leastmoderate to marked right C5-C6 and marked left C6-C7 neural foraminalstenosis. Please correlate for possible impingement of exiting right C6and left C7 nerve roots. ACTIONABLE ITEMS/RECOMMENDATIONS*: None. *An Actionable Finding is a finding that may be unrelated to the originalreason for imaging but potentially actionable, meaning furtherinvestigation may be necessary. The Actionable Findings Vigilance Unit(AFVU) assists medical providers with responding to additional radiologicfindings that are unexpected and potentially actionable. Ajit Pollard MD IMG MRI ORDERABLES Final Result * NM Bone Scan Whole Body (11/28/2024 10:23 AM UNIT CONTROL WORKER) Anatomical Region Laterality Modality Whole Body Nuclear Medicine 11/28/2024 11:4 1 AM UNIT CONTROL WORKER Impressions 11/28/2024 11:46 AM UNIT CONTROL WORKER Diffuse osseous metastases; overall, not significantly changed since 10/02/2024. ACTIONABLE ITEMS/RECOMMENDATIONS*: None. *An Actionable Finding is a finding that may be unrelated to the original reason for imaging but potentially actionable, meaning further investigation may be necessary. The Actionable Findings Vigilance Unit (AFVU) assists medical providers with responding to additional radiologic findings that are unexpected and potentially actionable. Narrative 11/28/2024 11:46 AM UNIT CONTROL WORKER FULL RESULT: Examination: Whole-Body Bone Scan, 11/28/2024 10:23 AM Clinical History: Prostate adenocarcinoma. Indication: Restaging. Evaluate osseous metastases. Comparison: Outside facility whole-body bone scan dated 10/02/2024. Correlation: CT chest, abdomen, and pelvis dated 11/26/2024. Technique: Following the intravenous administration of 19.9 mCi of technetium- 99m MDP, anterior and posterior delayed whole-body planar images were acquired. In addition, spot views of the skull were performed. Findings: Again seen is stable diffuse increased radiotracer activity throughout the axial and proximal appendicular skeleton with relatively decreased radiotracer activity in the kidneys, compatible with a "superscan". Overall, not significantly changed since 10/02/2024. Procedure Note Alvaro Acuna MD - 11/28/2024 FULL RESULT: Examination: Whole-Body Bone Scan, 11/28/2024 10:23 AM Clinical History: Prostate adenocarcinoma. Indication: Restaging. Evaluate osseous metastases. Comparison: Outside facility whole-body bone scan dated 10/02/2024. Correlation: CT chest, abdomen, and pelvis dated 11/26/2024. Technique: Following the intravenous administration of 19.9 mCi oftechnetium-99m MDP, anterior and posterior delayed whole-body planarimages were acquired. In addition, spot views of the skull wereperformed. Findings: Again seen is stable diffuse increased radiotracer activitythroughout the axial and proximal appendicular skeleton with relativelydecreased radiotracer activity in the kidneys, compatible with a"superscan". Overall, not significantly changed since 10/02/2024. IMPRESSION: Diffuse osseous metastases; overall, not significantly changed since10/02/2024. ACTIONABLE ITEMS/RECOMMENDATIONS*: None. *An Actionable Finding is a finding that may be unrelated to the originalreason for imaging but potentially actionable, meaning furtherinvestigation may be necessary. The Actionable Findings Vigilance Unit(AFVU) assists medical providers with responding to additional radiologicfindings that are unexpected and potentially actionable. Ajit MCCLENDON [place] ORDERABLES Final Result * CT Chest Abdomen Pelvis with Contrast (11/26/2024 10:32 AM UNIT CONTROL WORKER) Anatomical Region Laterality Modality Abdomen, Pelvis, Chest Computed Tomography 11/26/2024 10:4 2 AM UNIT CONTROL WORKER Impressions 11/26/2024 11:05 AM UNIT CONTROL WORKER Grossly stable widespread sclerotic osseous metastases compared to outside CT 09/28/2024. Please refer to pending nuclear medicine bone scan regarding activity. Decrease in metastatic retroperitoneal dilma disease. ACTIONABLE ITEMS/RECOMMENDATIONS*: None. *An Actionable Finding is a finding that may be unrelated to the original reason for imaging but potentially actionable, meaning further investigation may be necessary. The Actionable Findings Vigilance Unit (AFVU) assists medical providers with responding to additional radiologic findings that are unexpected and potentially actionable. Narrative 11/26/2024 11:05 AM UNIT CONTROL WORKER FULL RESULT: Examination: CT CHEST ABDOMEN PELVIS W CONTRAST on 11/26/2024 10:32 AM. Clinical History: Adenocarcinoma of prostate. Indication: Cancer staging or restaging. Comparison: Outside CT chest, abdomen and pelvis 09/28/2024. Technique: CT CHEST ABDOMEN PELVIS W CONTRAST. Findings: CHEST: Lungs and Pleura: Multiple bilateral calcified and noncalcified subcentimeter lung nodules from probable granulomatous disease. No consolidation. No pleural effusion. Cardiomediastinum: The heart is normal in size. No pericardial effusion. Lymph nodes: No lymphadenopathy. ABDOMEN AND PELVIS: Hepatobiliary: No suspicious hepatic lesion. No biliary dilatation. No cholecystitis. Spleen: No splenomegaly. Pancreas: No mass or ductal dilatation. Adrenal Glands: No mass. Kidneys, Ureters, Bladder: No hydronephrosis. No suspicious renal lesion. No bladder mass. Gastrointestinal Tract: No obstruction. Pelvic Organs: The prostate gland again measures 3.3 x 2.8 cm on series 6 image 287. Peritoneum/Retroperitoneum: No ascites. Lymph Nodes: Decrease in metastatic retroperitoneal adenopathy. A hotel services sales representative left para-aortic node on series 6 image 208 measures 0.7 x 0.9 cm and previously measured 0.9 x 1.2 cm. A precaval 0.5 cm node on series 6 image 216 previously measured 0.9 cm. A left common iliac node on series 6 image 233 measures 0.7 x 1 cm, previously measuring 0.9 x 1.1 cm. Decrease in small nodes along the inferior mesenteric artery and decrease in tiny superior hemorrhoidal nodes. MUSCULOSKELETAL: Grossly stable widespread sclerotic osseous metastases. Stable compression fracture deformity at L4. Resolution of subcutaneous fat stranding in the right groin. Procedure Note Korin Garay MD - 11/26/2024 FULL RESULT: Examination: CT CHEST ABDOMEN PELVIS W CONTRAST on 11/26/2024 10:32 AM. Clinical History: Adenocarcinoma of prostate. Indication: Cancer staging or restaging. Comparison: Outside CT chest, abdomen and pelvis 09/28/2024. Technique: CT CHEST ABDOMEN PELVIS W CONTRAST. Findings: CHEST: Lungs and Pleura: Multiple bilateral calcified and noncalcifiedsubcentimeter lung nodules from probable granulomatous disease. Noconsolidation. No pleural effusion. Cardiomediastinum: The heart is normal in size. No pericardial effusion. Lymph nodes: No lymphadenopathy. ABDOMEN AND PELVIS: Hepatobiliary: No suspicious hepatic lesion. No biliary dilatation. Nocholecystitis. Spleen: No splenomegaly. Pancreas: No mass or ductal dilatation. Adrenal Glands: No mass. Kidneys, Ureters, Bladder: No hydronephrosis. No suspicious renal lesion. No bladder mass. Gastrointestinal Tract: No obstruction. Pelvic Organs: The prostate gland again measures 3.3 x 2.8 cm on series 6image 287. Peritoneum/Retroperitoneum: No ascites. Lymph Nodes: Decrease in metastatic retroperitoneal adenopathy. Arepresentative left para-aortic node on series 6 image 208 measures 0.7 x0.9 cm and previously measured 0.9 x 1.2 cm. A precaval 0.5 cm node onseries 6 image 216 previously measured 0.9 cm. A left common iliac node onseries 6 image 233 measures 0.7 x 1 cm, previously measuring 0.9 x 1.1 cm.Decrease in small nodes along the inferior mesenteric artery and decreasein tiny superior hemorrhoidal nodes. MUSCULOSKELETAL: Grossly stable widespread sclerotic osseous metastases. Stable compressionfracture deformity at L4. Resolution of subcutaneous fat stranding in theright groin. IMPRESSION: Grossly stable widespread sclerotic osseous metastases compared to outsideCT 09/28/2024. Please refer to pending nuclear medicine bone scanregarding activity. Decrease in metastatic retroperitoneal dilma disease. ACTIONABLE ITEMS/RECOMMENDATIONS*: None. *An Actionable Finding is a finding that may be unrelated to the originalreason for imaging but potentially actionable, meaning furtherinvestigation may be necessary. The Actionable Findings Vigilance Unit(AFVU) assists medical providers with responding to additional radiologicfindings that are unexpected and potentially actionable. Ajit Pollard MD [place] CT ORDERABLES Final Result * Hepatitis C Virus Antibody (11/22/2024 2:38 PM UNIT CONTROL WORKER) HCVAb. Non Reactive Non Reactive 11/22/2024 4:50 PM UNIT CONTROL WORKER [facility] Blood Peripheral blood specimen / Unknown Venipuncture / Unknown 11/22/2024 2:38 PM UNIT CONTROL WORKER 11/22/2024 2:40 PM UNIT CONTROL WORKER Narrative [facility] - 11/22/2024 4:50 PM UNIT CONTROL WORKER Antibody detection in the immunocompromised and immunosuppressed population may be delayed or absent entirely. Therefore serial testing, correlation with other clinical findings, and supplemental testing (if available) should be taken into consideration when interpreting the results. Result [facility] us Ajit Pollard MD LAB BLOOD ORDERABLES Final Resu lt [facility] Unless otherwise noted, all lab tests performed by: Division of Pathology and Laboratory Medicine [address] [place] [address] * TSH (11/22/2024 2:38 PM UNIT CONTROL WORKER) Pathologist [facility] Thyroid Stimulating Hormone 2.34 0.27 - 4.20 mcunit/mL 11/22/2024 3:19 PM UNIT CONTROL WORKER [facility] Blood Peripheral blood specimen / Unknown Venipuncture / Unknown 11/22/2024 2:38 PM UNIT CONTROL WORKER 11/22/2024 2:40 PM UNIT CONTROL WORKER Result [facility] Ajit Pollard MD LAB BLOOD ORDERABLES Final Resu lt [facility] [address] [place] [address] * OSI Chest (10/04/2024 8:56 PM UNIT CONTROL WORKER) Narrative Systemgenerated, Documentation - 10/22/2024 8:56 PM UNIT CONTROL WORKER Study acquired at another institution. For comparison only. No [facility] originated interpretation requested or available. Result [facility] Ajit Pollard MD IMG OUTSIDE IMAGE ORDERABLES Fi nal Result * OSI Bone Scan (10/02/2024 8:56 PM UNIT CONTROL WORKER) Narrative Systemgenerated, Documentation - 10/22/2024 8:56 PM UNIT CONTROL WORKER Study acquired at another institution. For comparison only. No [facility] originated interpretation requested or available. Result Mckenzie Pollard MD IMG OUTSIDE IMAGE ORDERABLES Fi nal Result * Pathology Outside Interpretation (09/30/2024) Materials Received Accession#, Stained, Block, Unstained Collected Received A. [id number], 6 SS, 0 BLOCKS, 0 USS 09/30/2024 11/01/2024 11/04/2024 11:26 AM [facility] Diagnosis Outside ([id number], 6 SS (A1-1, A1-2, A1-3, A2-1, A2-2, A2-3), 0 BLOCKS, 0 USS, collected on 09/30/2024): Prostate, biopsy: PROSTATIC ADENOCARCINOMA, BO SCORE 9 (4+5), GRADE GROUP 5, THREE FOCI (14 MM, 7 MM AND LESS THAN 1 MM), INVOLVING TWO SEPARATE TISSUE CORES. AL/FHH 11/04/2024 11:26 AM [facility] Biomarker Block(s) Tumor: A1 Normal: N/A 11/04/2024 11:26 AM [facility] Disclaimer "Some tests reported here may have been developed and performance characteristics determined by [facility] Pathology and Laboratory Medicine. These tests have not been specifically cleared or approved by the U.S. Food and Drug Administration. If applicable, controls were reviewed and showed appropriate reactivity." 11/04/2024 11:26 AM [facility] Tissue 09/30/2024 11/01/2024 10: 02 AM UNIT CONTROL WORKER us Marbella Lopez MD LAB PATHOLOGY ORDERABL ES Final Result [facility] [address] [place] [id number], [place] * OSI CT CHEST ABDOMEN PELVIS (09/28/2024 8:56 PM CDT) Narrative Systemgenerated, Documentation - 10/22/2024 8:56 PM UNIT CONTROL WORKER Study acquired at another institution. For comparison only. No [facility] originated interpretation requested or available. us Ajit Pollard MD IMG OUTSIDE IMAGE ORDERABLES Fi nal Result * OSI US Abdominal Complete (09/26/2024 8:56 PM CDT) Narrative Systemgenerated, Documentation - 10/22/2024 8:56 PM UNIT CONTROL WORKER Study acquired at another institution. For comparison only. No [facility] originated interpretation requested or available. Ajit MCCLENDON OUTSIDE IMAGE ORDERABLES Fi nal Result after 01/22/2024 Insurance ACCESS NETWORK GENERIC ACCESS NETWORK GENERIC Care Teams Shelving Supervisor Relationship Specialty Start Date End Date Uday Perez [address] [place] [id number] PCP - External Primary Care Provider 10/21/24 [place] [address] [place] [phone] [email or web address] PCP - General Genitourinary Oncology 10/21/24 10/21/24 Ajit Pollard MD [address] [place] [address] [email or web address] PCP - General Genitourinary Oncology 10/22/24
--- NOTE | 2025-01-21 13:14 | EDPHYS ---
Physician Documentation [facility] Name: Marko Pisano Age: 59 yrs Sex: Male : 1965 Arrival Date: 01/21/2025 Time: 12:35 Bed DX4 Private MD: ED Physician Jignesh Juan HPI: 01/21 12:59 This 59 yrs old Male presents to ER via Ambulatory with complaints of Dog Bite.rn 12:59 The patient was bitten on the left hand. rn 12:59 Onset: The symptoms/episode began/occurred 2 day(s) ago. Secondary to the bite the rn patient reports swelling. Severity of symptoms: At their worst the symptoms were mild, in the emergency department the symptoms are unchanged. The patient has not experienced similar symptoms in the past. Patient reports his own dog bit him 2 days ago. Dog bite to the left fourth finger. Reports has not gone down and swelling. No fever or chills. No drainage. Mild pain to the location of the bite but not along the length of the finger itself or hand.. Historical: - Allergies: 12:47 No Known Allergies; iw - Home Meds: 12:47 darolutamide 300 mg oral tablet 2 times per day [Active]; degarelix 240 mg subcutaneous iw Recon Soln once [Active]; leuprolide intramuscular every 6 months [Active]; 12:50 gabapentin 300 mg oral capsule daily [Active]; thiamine HCl (vitamin B1) 100 mg Oral iw tablet daily [Active]; levetiracetam 500 mg oral tablet 2 times per day [Active]; Nubeqa 300 mg oral tablet 2 times per day [Active]; - PMHx: 12:47 prostate cancer; iw - Immunization history:: Adult Immunizations up to date. - Infectious Disease History:: Denies. - Family history:: not pertinent. - Hospitalizations: : No recent hospitalization is reported. - Social history:: Smoking status: Patient denies any tobacco usage or history of. ROS: 12:59 Constitutional: Negative for fever, chills, and weight loss, MS/Extremity: Positive for rn dog bite to left fourth digit of hand Exam: 12:59 Constitutional: This is a well developed, well nourished patient who is awake, alert, rn and in no acute distress. MS/ Extremity: Pulses equal, no cyanosis. Neurovascular intact. Evidence of bite/puncture wounds to the left fourth finger, distal portion. Subcentimeter area of developing abscess with tenderness and fluctuance. No warmth or erythema. Noted tenderness along flexor sheath. No pain with extension. Vital Signs: 12:46 BP 132 / 75; Pulse 81; Resp 16; Temp 97.8; Pulse Ox 99% on R/A; Weight 77.11 kg; Height iw 5 ft. 2 in. ; Pain 12/06; 12:46 Body Mass Index 31.09 (77.11 kg, 157.48 cm) iw 12:46 Pain Scale: Adult iw Procedures: 13:11 I \T\ D: Incision and drainage was performed for an abscess of the left 4th finger rn Prepped with alcohol, Incised with 18g needle. Drained small amount purulent fluid. Dressing: band-aid the patient tolerated the procedure well. MDM: 12:49 Medical Screening Exam initiated rn 13:11 Differential diagnosis: cellulitis, Abscess. Data reviewed: vital signs, nurses notes, rn and as a result, I will discharge patient. Counseling: I had a detailed discussion with the patient and/or guardian regarding the historical points, exam findings, and any diagnostic results supporting the discharge/admit diagnosis, the need for outpatient follow up, to return to the emergency department if symptoms worsen or persist or if there are any questions or concerns that arise at home. Response to treatment: the patient's symptoms have mildly improved after treatment, and as a result, I will discharge patient. ED course: All visible purulence removed from small subcentimeter abscess of the fourth finger. Will discharge home with antibiotics. No evidence of flexor tenosynovitis or deep space infection.. Administered Medications: No medications were administered Disposition Summary: 01/21/25 13:13 Discharge Ordered Notes: Location: Home rn Problem: new rn Symptoms: have improved rn Condition: Stable rn Diagnosis - Dog bite with abscess to left 4th finger rn Followup: rn - With: Private Physician - When: As needed - Reason: Recheck today's complaints, Re-evaluation by your physician Discharge Instructions: - Discharge Summary Sheet rn - Skin Abscess rn - Animal Bite, Adult rn Forms: - Medication Reconciliation Form rn - Antibiotic undergraduate intern - Prescription Opioid Use rn - Patient Portal Instructions rn - Leadership Thank You Letter rn Prescriptions: - Bactrim DS 800-160 mg Oral Tablet - take 1 tablet ORAL route every 12 hours for 10 days; 20 tablet; Refills: 0, rn Product Selection Permitted Signatures: Natalie Perry, RN RN Jignesh Torres MD MD rn Lewis, Lynsay, RN RN ll1
--- NOTE | 2025-01-21 13:14 | ER ---
Nurse's Notes [facility] Name: Marko Pisano Age: 59 yrs Sex: Male : 1965 Arrival Date: 01/21/2025 Time: 12:35 Bed DX4 Private MD: Diagnosis: Dog bite with abscess to left 4th finger Presentation: 01/21 12:46 Chief complaint: Patient states: his dog bit him on Monday on left ring finger, now the iw finger is throbbing and not healing. Coronavirus screen: At this time, the client does not indicate any symptoms associated with coronavirus-19. Ebola Screen: No symptoms or risks identified at this time. Initial Sepsis Screen: Does the patient meet any 2 criteria? No. Patient's initial sepsis screen is negative. Does the patient have a suspected source of infection? No. Patient's initial sepsis screen is negative. Risk Assessment: Do you want to hurt yourself or someone else?. Onset of symptoms was January 19, 2025. 12:46 Method Of Arrival: Ambulatory iw 12:46 Acuity: PERRI 4 iw Triage Assessment: 13:05 Bite description: bite sustained to left hand by a dog, animal information: ll1 vaccination(s) is current. Historical: - Allergies: 12:47 No Known Allergies; iw - Home Meds: 12:47 darolutamide 300 mg oral tablet 2 times per day [Active]; degarelix 240 mg subcutaneous iw Recon Soln once [Active]; leuprolide intramuscular every 6 months [Active]; 12:50 gabapentin 300 mg oral capsule daily [Active]; thiamine HCl (vitamin B1) 100 mg Oral iw tablet daily [Active]; levetiracetam 500 mg oral tablet 2 times per day [Active]; Nubeqa 300 mg oral tablet 2 times per day [Active]; - PMHx: 12:47 prostate cancer; iw - Immunization history:: Adult Immunizations up to date. - Infectious Disease History:: Denies. - Family history:: not pertinent. - Hospitalizations: : No recent hospitalization is reported. - Social history:: Smoking status: Patient denies any tobacco usage or history of. Screenin:05 [facility] ED Fall Risk Assessment (Adult) History of falling in the last 3 months, ll1 including since admission No falls in past 3 months (0 pts) Confusion or Disorientation No (0 pts) Intoxicated or Sedated No (0 pts) Impaired Gait No (0 pts) Mobility Assist Device Used No (0 pt) Altered Elimination No (0 pt) Score/Fall Risk Level 0 - 2 = Low Risk Maintained a safe environment, Hourly rounding (assess needs \T\ fall precautionary measures) done. Abuse screen: Denies threats or abuse. Nutritional screening: No deficits noted. Tuberculosis screening: No symptoms or risk factors identified. Assessment: 13:04 General: Appears uncomfortable, Behavior is calm, cooperative, appropriate for age. ll1 Pain: Complains of pain in left hand Quality of pain is described as aching. Derm: wound to L pinky, swollen painful Reports pain. 13:17 Reassessment: No changes from previously documented assessment. Patient and/or family ll1 updated on plan of care and expected duration. Pain level reassessed. Patient is alert, oriented x 3, equal unlabored respirations, skin warm/dry/pink. dressing by Dr. Juan. 13:18 Derm: Skin is pink, warm \T\ dry. ll1 13:18 Derm: Skin is fragile. ll1 Vital Signs: 12:46 BP 132 / 75; Pulse 81; Resp 16; Temp 97.8; Pulse Ox 99% on R/A; Weight 77.11 kg; Height iw 5 ft. 2 in. ; Pain 1/10; 12:46 Body Mass Index 31.09 (77.11 kg, 157.48 cm) iw 12:46 Pain Scale: Adult iw ED Course: 12:37 Patient arrived in ED. im 12:47 Triage completed. iw 12:49 Jignesh Juan MD is Attending Physician. rn 12:50 Arm band placed on. iw 13:05 No provider procedures requiring assistance completed. Patient did not have IV access ll1 during this emergency room visit. 13:06 Patient has correct armband on for positive identification. Bed in low position. ll1 Provided Education on: ER procedures and process. Cardiac monitoring not applicable on this patient. Administered Medications: No medications were administered Medication: 13:18 VIS not applicable for this client. ll1 Outcome: 13:13 Discharge ordered by . rn 13:18 Discharged to home ambulatory, ll1 13:18 Condition: stable 13:18 Discharge instructions given to patient, Instructed on discharge instructions, follow up and referral plans. medication usage, wound care, Demonstrated understanding of instructions, follow-up care, medications, wound care, Prescriptions given X 1, 13:18 Patient left the ED. ll1 Signatures: Natalie Perry RN RN iw Nieto, Roman, MD MD rn Lewis, Lynsay, RN RN ll1 Marguerite James
[2025-01-21 13:36] VITALS: BP 132/75; TEMP 97.8; O2SAT 99
== END 2025-01-21 13:18 | disposition home or self-care (01) ==
LOC: ER 12:35
PROC: 0H9GXZZ Drainage of Left Hand Skin, External Approach (ICD-10-PCS; principal; 2025-01-21)
DX: L02.512 Cutaneous abscess of left hand (principal); W54.0XXA Bitten by dog, initial encounter